=== PATIENT | male | born 1995 | race African-American/Black ===

== ENCOUNTER 2017-11-19 14:49 | Emergency (ER) | payer SELFPAY ==
[~2017-11-19] VITALS: Ht 185.4 cm; Wt 77.1 kg
[~2017-11-19 14:49] MED LIST: AMIT25TA9 PO; AMOX500C2 PO; IBP800T PO; LISD50CA2 PO
--- OUTSIDE RECORDS SUMMARY | 2017-11-19 14:54 | XMS REPORT ---
Author Author JAYESH EBONY Organization [facility] Address [address] [place] [address] Care Team Providers Care Stacking Machine Operator Name Role Phone REESEYAN EBONY Unavailable PROBLEMS Type Condition ICD9-CM Code [id number] Code Onset Dates Condition Status SNOMED Code Problem Oppositional defiant disorder F91.3 Active 28327879 Problem Mood disorder F39 Active 70365709 Problem Primary insomnia F51.01 Active 5509859 Problem Cannabis use, uncomplicated F12.90 Active 311215013 Problem Generalized anxiety disorder F41.1 Active 82132259 Problem Moderate episode of recurrent major depressive disorder F33.1 Active 752318824 Problem Insomnia, unspecified type G47.00 Active 532834137 Problem Family history of diabetes mellitus Z83.3 Active 829715575 Problem Encounter to establish care Z76.89 Active 525162854 Problem Attention deficit hyperactivity disorder (ADHD), unspecified ADHD type F90.9 Active 193196586 ALLERGIES No Information ENCOUNTERS Encounter Location Date Diagnosis [facility] [id number] [place] [address]3765- [address]563 Jan, [facility] [id number] [place] [address] 64171- 7404 Jan, [facility] [id number] [place] [address] 10763- 9342 Jan, Acute upper respiratory infection, unspecified J06.9 [facility] [id number] [place] [address]1914 -7258 Jan, Acute nasopharyngitis (common cold) J00 [facility] [id number] [place] [address]39 -4799 Dec, [facility] [address] [address] Dec, Attention deficit hyperactivity disorder (ADHD), unspecified ADHD type F90.9 ; Moderate episode of recurrent major depressive disorder F33.1 and Generalized anxiety disorder F41.1 [facility] [address] [address] Dec, Low back pain M54.5 [facility] [id number] [place] [address] 61018- 6185 Dec, [facility] [id number] [place] [address] 31311- 3418 Dec, [facility] [id number] [place] [address] 94545- 7564 Dec, [facility] [id number] [place] [address] 99109- 4934 Dec, Moderate episode of recurrent major depressive disorder F33.1 and Generalized anxiety disorder F41.1 [facility] [id number] [place] [address] 49474- 9683 Nov, [facility] [id number] [place] [address] 52714- 5420 Nov, [facility] [id number] [place] [address] 43635- 8819 Nov, Attention deficit hyperactivity disorder (ADHD), unspecified ADHD type F90.9 ; Insomnia, unspecified type G47.00 and Low back pain M54.5 [facility] [address] [address] October, Insomnia, unspecified type G47.00 and Attention deficit hyperactivity disorder (ADHD), unspecified ADHD type F90.9 [facility] [address] [address] October, [facility] [address] [address] October, [facility] [id number] [place] [address] 35331- 9367 October, [facility] [id number] [address] Sep, Acute nasopharyngitis J00 [facility] [id number] [address] Aug, [facility] [address] [address] 99[address] Jul, Attention deficit hyperactivity disorder (ADHD), unspecified ADHD type F90.9 [facility] [address] [address] Jun, Attention deficit hyperactivity disorder (ADHD), unspecified ADHD type F90.9 ; Encounter for immunization Z23 and Upper respiratory infection, acute J06.9 [facility] [address] [address] 5[address] Jun, Attention deficit hyperactivity disorder (ADHD), unspecified ADHD type F90.9 [facility] [address] [address] 4[address] Jun, [facility] [address] [address] 3014 Jun, Attention deficit hyperactivity disorder (ADHD), unspecified ADHD type F90.9 [facility] [id number] [address] 98[address] May, Attention deficit hyperactivity disorder (ADHD), unspecified ADHD type F90.9 [facility] [id number] [address] Apr, [facility] [id number] [address] 6[address] Apr, Attention deficit hyperactivity disorder (ADHD), unspecified ADHD type F90.9 [facility] [id number] [address] 3514 Mar, [facility] [id number] [address] 06 Mar, 2016 Attention deficit hyperactivity disorder (ADHD), unspecified ADHD type F90.9 [facility] [id number] [address] 08 Feb, 2016 Attention deficit hyperactivity disorder (ADHD), unspecified ADHD type F90.9 [facility] [id number] [place] [address] 50421- 4385 Jan, Attention deficit hyperactivity disorder (ADHD), unspecified ADHD type F90.9 [facility] [id number] [place] [address] 66519- 8520 Dec, Attention deficit hyperactivity disorder (ADHD), unspecified ADHD type F90.9 [facility] [id number] [place] [address] 30745- 9221 24 Nov, 2015 [facility] [id number] [place] [address] 94818- 4650 16 Nov, 2015 Encounter to establish care Z76.89 ; Attention deficit hyperactivity disorder (ADHD), unspecified ADHD type F90.9 ; Insomnia, unspecified type G47.00 and Family history of diabetes mellitus Z83.3 [facility] [address] [address] 7065 13 Nov, 2015 [facility] [address] [address]- 3470 14 Sep, 2014 [facility] [address] [address] 8625 Sep, [facility] [address] [address]- 1374 Jul, [facility] [id number] [address]- 6160 Jul, [facility] [id number] [id number] May, [facility] [id number] [place] [address] 74706- 2546 May, [facility] [place] [facility] [address] [id number] [place] [address]- 3545 May, [facility] [place] [facility] [address] [id number] [place] [address]- 8744 May, [facility] [place] [facility] [address] [id number] [place] [address]- 3066 May, [facility] [place] [facility] [address] [id number] [place] [address]- 5449 May, [facility] [place] [facility] [address] [id number] [place] [address]- 8992 May, [facility] [place] [facility] [address] [id number] [place] [address]- 2320 May, [facility] [place] [facility] [address] [id number] [place] [address]- 3109 Apr, [facility] [place] [facility] [address] [id number] [place] [address]- 7525 Apr, [facility] [place] [facility] [address] [id number] [place] [address]- 1881 Feb, [facility] [place] [facility] [address] [id number] [place] [address]- 4407 Feb, [facility] [place] [facility] [address] [id number] [place] [address]- 5950 October, [facility] [place] [facility] [address] [id number] [place] [address]- 5346 October, [facility] [place] [facility] [address] [id number] [place] [address]- 6057 Sep, [facility] [place] [facility] [address] [id number] [place] [address]- 5250 Sep, [facility] [place] [facility] [address] [id number] [place] [address]- 7653 May, [facility] [place] [facility] [address] [id number] [place] [address]- 2546 May, [facility] [address] [id number] [place] [address]- 8927 Jan, [facility] [address] [id number] [place] [address]- 2546 October, [facility] [address] [id number] [place] [address]- 3976 Sep, [facility] [address] [id number] [place] [address]- 2546 Sep, [facility] [address] [id number] [place] [address]- 0016 Sep, [facility] [address] [id number] [place] [address]- 5516 Aug, [facility] [address] [id number] [place] [address]- 1506 Aug, [facility] [address] [id number] [place] [address]- 0337 Aug, [facility] [address] [id number] [place] [address]- 3346 Aug, [facility] [address] [id number] [place] [address]- 6754 Jun, [facility] [address] [id number] [place] [address]- 2546 Mar, [facility] [address] [id number] [place] [address]- 2546 Mar, [facility] [address] [id number] [place] [address]- 5006 Aug, [facility] [address] [id number] [place] [address]- 2546 Jun, [facility] [address] [id number] [place] [address]- 2546 May, [facility] [address] [facility] [id number] [address]- 9143 Apr, [facility] [address] [facility] [id number] [address]- 8046 Apr, [facility] [address] [facility] [id number] [address]- 2536 Apr, [facility] [address] [facility] [id number] [address]- 5783 Aug, [facility] [address] [facility] [id number] [address] May, [facility] [address] [facility] [id number] [address]- 5596 May, [facility] [address] [address]- 7326 Apr, [facility] [address] [address]- 5640 Apr, [facility] [id number] [address]- 0440 Apr, [facility] [id number] [address]- 8441 Apr, [facility] [id number] [address]- 0649 Mar, [facility] [id number] [address]- 7318 Mar, IMMUNIZATIONS No Known Immunizations SOCIAL HISTORY Never Assessed REASON FOR VISIT Medication question PLAN OF CARE VITAL SIGNS MEDICATIONS Unknown Medications RESULTS No Results PROCEDURES No Known procedures INSTRUCTIONS MEDICATIONS ADMINISTERED No Known Medications MEDICAL (GENERAL) HISTORY Type Description Date Medical History attention deficit hyperactivity disorder Medical History attention deficit disorder Medical History insomnia
--- OUTSIDE RECORDS SUMMARY | 2017-11-19 14:55 | XMS REPORT ---
Author Author BRIANNE SHAH [facility] Address [address] [place] [address] Care Team Providers Care Superintendent [employer] Name Role Phone BRIANNE SHAH Unavailable PROBLEMS Type Condition ICD9-CM Code [id number] Code Onset Dates Condition Status SNOMED Code Problem Unspecified constipation 564.00 Active 37975655 Problem Unspecified episodic mood disorder 296.90 Active 248063171 Problem Acute suppurative otitis media without spontaneous rupture of eardrum 382.00 Active 77972416 Problem Encounter to establish care Z76.89 Active 706762819 Problem Attention deficit hyperactivity disorder (ADHD), unspecified ADHD type F90.9 Active 518630484 Problem Oppositional defiant disorder 313.81 Active 69696380 Problem Nondependent cannabis abuse, 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 Active 543615377 Problem Insomnia, unspecified type G47.00 Active 115985528 Problem Family history of diabetes mellitus Z83.3 Active 535403065 Problem Palpitations 785.1 Active 55013303 Problem Influenza with other respiratory manifestations 487.1 Active 4967434 Problem Routine or ritual circumcision V50.2 Active 207638058 Problem GARDASIL (HPV) DX V04.89 Active Problem MENINGOCOCCAL DX V03.89 Active Problem Insomnia, unspecified 780.52 Active 087967473 Problem Routine infant or child health check V20.2 Active 824255238 Problem Headache 784.0 Active 52913432 ALLERGIES Unknown Allergies SOCIAL HISTORY No smoking Hx information available PLAN OF CARE VITAL SIGNS MEDICATIONS Medication Instructions Dosage Frequency Start Date End Date Duration Status Vyvanse 50 mg Orally Once a day 1 capsule in the morning 24h May, 28 days Active RESULTS No Results PROCEDURES No Known procedures IMMUNIZATIONS No Known Immunizations
--- OUTSIDE RECORDS SUMMARY | 2017-11-19 14:55 | XMS REPORT ---
Author Author BRIANNE SHAH [facility] Address [address] [place] [address] Care Team Providers Care Arcade Games Mechanic Name Role Phone BRIANNE SHAH Unavailable PROBLEMS Type Condition ICD9-CM Code [id number] Code Onset Dates Condition Status SNOMED Code Problem Oppositional defiant disorder F91.3 Active 85389129 Problem Mood disorder F39 Active 36900862 Problem Primary insomnia F51.01 Active 1316586 Problem Cannabis use, uncomplicated F12.90 Active 667943502 Problem Generalized anxiety disorder F41.1 Active 66313134 Problem Moderate episode of recurrent major depressive disorder F33.1 Active 969628105 Problem Insomnia, unspecified type G47.00 Active 069139568 Problem Family history of diabetes mellitus Z83.3 Active 666225299 Problem Encounter to establish care Z76.89 Active 297217467 Problem Attention deficit hyperactivity disorder (ADHD), unspecified ADHD type F90.9 Active 892549035 ALLERGIES No Information SOCIAL HISTORY Never Assessed PLAN OF CARE VITAL SIGNS MEDICATIONS Medication Instructions Dosage Frequency Start Date End Date Duration Status Vyvanse 50 mg Orally Once a day 1 capsule in the morning 24h Jul, 28 days Active RESULTS No Results PROCEDURES No Known procedures IMMUNIZATIONS No Known Immunizations MEDICAL (GENERAL) HISTORY Type Description Date Medical History attention deficit hyperactivity disorder Medical History attention deficit disorder Medical History insomnia
--- OUTSIDE RECORDS SUMMARY | 2017-11-19 14:55 | XMS REPORT ---
Author Author BRIANNE SHAH [facility] eClinical[employer] Address Unknown Phone Unavailable Care Team Providers Care World Geography Teacher Name Role Phone BRIANNE SHAH CP Unavailable Allergies No Known Allergies Problems Problem Type Condition Code Onset Dates Condition Status Problem Headache 784.0 Active Problem Acute suppurative otitis media without spontaneous rupture of eardrum 382.00 Active Problem Unspecified constipation 564.00 Active Problem Attention deficit hyperactivity disorder (ADHD), unspecified ADHD type F90.9 Active Problem Insomnia, unspecified type G47.00 Active Problem Encounter to establish care Z76.89 Active Problem Nondependent cannabis abuse, 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 Active Problem Unspecified episodic mood disorder 296.90 Active Problem Family history of diabetes mellitus Z83.3 Active Problem Oppositional defiant disorder 313.81 Active Problem Palpitations 785.1 Active Problem Routine infant or child health check V20.2 Active Problem Routine or ritual circumcision V50.2 Active Problem Influenza with other respiratory manifestations 487.1 Active Problem GARDASIL (HPV) DX V04.89 Active Problem MENINGOCOCCAL DX V03.89 Active Problem Insomnia, unspecified 780.52 Active Medications No Known Medications Results No Known Results Summary Purpose eClinicalWorks Submission
--- OUTSIDE RECORDS SUMMARY | 2017-11-19 14:55 | XMS REPORT ---
Author Author BILLY Clayton [facility] Address [address] [place] [address] Care Team Providers Care Drugless Doctor Name Role Phone BILLY Clayton Unavailable PROBLEMS Type Condition ICD9-CM Code UTE54-QN Code Onset Dates Condition Status SNOMED Code Problem Oppositional defiant disorder F91.3 Active 76024363 Problem Mood disorder F39 Active 08735416 Problem Primary insomnia F51.01 Active 4921676 Problem Cannabis use, uncomplicated F12.90 Active 812526616 Problem Generalized anxiety disorder F41.1 Active 24689931 Problem Moderate episode of recurrent major depressive disorder F33.1 Active 737140332 Problem Insomnia, unspecified type G47.00 Active 184676257 Problem Family history of diabetes mellitus Z83.3 Active 851626129 Problem Encounter to establish care Z76.89 Active 773850486 Problem Attention deficit hyperactivity disorder (ADHD), unspecified ADHD type F90.9 Active 749667426 ALLERGIES Substance Reaction Event Type Date Status Evie Mc Unknown Drug Allergy Jan, Active ENCOUNTERS Encounter Location Date Diagnosis [facility] [id number] [place] [address]- 6559 Jan, [facility] [id number] [place] [address] 92192- 6543 Jan, [facility] [id number] [place] [address] 49165- 5844 Jan, Acute upper respiratory infection, unspecified J06.9 [facility] [id number] [place] [address] -5957 Jan, Acute nasopharyngitis (common cold) J00 [facility] [id number] [place] [address] 16377 -5583 Dec, [facility] [address] [facility] [id number] [address] Dec, Attention deficit hyperactivity disorder (ADHD), unspecified ADHD type F90.9 ; Moderate episode of recurrent major depressive disorder F33.1 and Generalized anxiety disorder F41.1 [facility] [address] [facility] [id number] [place] [address] Dec, Low back pain M54.5 [facility] [address] [facility] [id number] [place] [address] Dec, [facility] [address] [facility] [id number] [place] [address] 9887 Dec, [facility] [address] [facility] [id number] [place] [address] 3[address] Dec, [facility] [id number] [place] [address] Dec, Moderate episode of recurrent major depressive disorder F33.1 and Generalized anxiety disorder F41.1 [facility] [address] [facility] [id number] [place] [address]235 Nov, [facility] [address] [facility] [id number] [place] [address]36 Nov, [facility] [address] [facility] [id number] [place] [address]678 Nov, Attention deficit hyperactivity disorder (ADHD), unspecified ADHD type F90.9 ; Insomnia, unspecified type G47.00 and Low back pain M54.5 [facility] [address] [facility] [id number] [place] [address] October, Insomnia, unspecified type G47.00 and Attention deficit hyperactivity disorder (ADHD), unspecified ADHD type F90.9 [facility] [address] [facility] [id number] [place] [address] 0886 October, [facility] [address] [facility] [id number] [place] [address] 9060 October, [facility] [address] [address] October, [facility] [address] [address] Sep, Acute nasopharyngitis J00 [facility] [address] [address] Aug, [facility] [id number] [place] [address]- 2339 Jul, Attention deficit hyperactivity disorder (ADHD), unspecified ADHD type F90.9 [facility] [id number] [place] [address]65- 6360 Jun, Attention deficit hyperactivity disorder (ADHD), unspecified ADHD type F90.9 ; Encounter for immunization Z23 and Upper respiratory infection, acute J06.9 [facility] [address] [address] Jun, Attention deficit hyperactivity disorder (ADHD), unspecified ADHD type F90.9 [facility] [address] [address] Jun, [facility] [address] [address] 67[address] Jun, Attention deficit hyperactivity disorder (ADHD), unspecified ADHD type F90.9 [facility] [address] [address] May, Attention deficit hyperactivity disorder (ADHD), unspecified ADHD type F90.9 [facility] [address] [address] Apr, [facility] [address] [address] 7645 Apr, Attention deficit hyperactivity disorder (ADHD), unspecified ADHD type F90.9 [facility] [address] [address] Mar, [facility] [address] [address] 164[address] Mar, Attention deficit hyperactivity disorder (ADHD), unspecified ADHD type F90.9 [facility] [address] [address] 08 Feb, 2016 Attention deficit hyperactivity disorder (ADHD), unspecified ADHD type F90.9 [facility] [id number] [place] [address] 6[address]379- 1769 Jan, Attention deficit hyperactivity disorder (ADHD), unspecified ADHD type F90.9 [facility] [id number] [place] [address] 355629- 5944 Dec, Attention deficit hyperactivity disorder (ADHD), unspecified ADHD type F90.9 [facility] [address] [address] 24 Nov, 2015 [facility] [id number] [place] [address] 94877- 2598 16 Nov, 2015 Encounter to establish care Z76.89 ; Attention deficit hyperactivity disorder (ADHD), unspecified ADHD type F90.9 ; Insomnia, unspecified type G47.00 and Family history of diabetes mellitus Z83.3 [facility] [address] [address]- 67[address] 13 Nov, 2015 [facility] [address] [address] 1403 Sep, [facility] [address] [address]- 97[address] Sep, [facility] [id number] [place] [address] 35003- 2608 Jul, [facility] [address] [address] 8[address] Jul, [facility] [address] [id number] May, [facility] [address] [id number] [place] [address] May, [facility] [place] [facility] [address] [id number] [place] [address] May, [facility] [place] [facility] [address] [id number] [place] [address]- 4071 May, [facility] [place] [facility] [address] [id number] [place] [address]- 6756 May, [facility] [place] [facility] [address] [id number] [place] [address]- 2270 May, [facility] [place] [facility] [address] [id number] [place] [address] May, [facility] [place] [facility] [address] [id number] [place] [address]- 8952 May, [facility] [place] [facility] [address] [id number] [place] [address]- 0608 Apr, [facility] [place] [facility] [address] [id number] [place] [address]- 3814 Apr, [facility] [place] [facility] [address] [id number] [place] [address]- 9145 Feb, [facility] [place] [facility] [address] [id number] [place] [address]- 2660 Feb, [facility] [place] [facility] [address] [id number] [address] 4[address] October, [facility] [place] [facility] [address] [id number] [place] [address]- 0442 October, [facility] [place] [facility] [address] [id number] [place] [address]- 2172 Sep, [facility] [place] [facility] [address] [id number] [place] [address]- 3516 Sep, [facility] [place] [facility] [address] [id number] [address]- 2836 May, [facility] [address] [id number] [place] [address]- 7585 May, [facility] [place] [facility] [address] [id number] [place] [address]- 8136 Jan, [facility] [place] [facility] [address] [id number] [place] [address]- 3056 October, [facility] [place] [facility] [address] [id number] [place] [address]- 9403 Sep, [facility] [place] [facility] [address] [id number] [place] [address]- 5064 Sep, [facility] [place] [facility] [address] [id number] [place] [address]- 6813 Sep, [facility] [address] [id number] [place] [address]- 2118 Aug, [facility] [place] [facility] [address] [id number] [place] [address]- 0346 Aug, [facility] [address] [id number] [place] [address]- 6677 Aug, [facility] [place] [facility] [address] [id number] [place] [address]- 1608 Aug, [facility] [address] [id number] [place] [address]- 2063 Jun, [facility] [place] [facility] [address] [id number] [place] [address]- 1907 Mar, [facility] [place] [facility] [address] [id number] [place] [address]- 6442 Mar, [facility] [place] [facility] [address] [id number] [place] [address]- 1489 Aug, [facility] [place] [facility] [address] [id number] [place] [address]- 8663 Jun, [facility] [place] [facility] [address] [address] 2546 May, [facility] [address] [address]- 8[address] Apr, [facility] [address] [address]- 2546 Apr, [facility] [address] [address]- 2542 Apr, [facility] [address] [address]- 2912 Aug, [facility] [id number] [place] [address] 13225- 9742 May, [facility] [address] [address]- 4491 May, [facility] [id number] [place] [address] 46767- 0190 Apr, [facility] [address] [address]- 8783 Apr, [facility] [address] [address]- 6909 Apr, [facility] [address] [address]- 8132 Apr, [facility] [address] [address]- 1522 Mar, [facility] [id number] [address]- [address]487 Mar, IMMUNIZATIONS No Known Immunizations SOCIAL HISTORY Never Assessed REASON FOR VISIT chest congestion, productive cough that has red tinged sputum, stuffy nose. been sick for 2 days. [email or web address] PLAN OF CARE Activity Details Follow Up prn Reason: VITAL SIGNS Height 72 in 2017-01-14 Weight 162.4 lbs 2017-01-14 Temperature 97.2 degrees Fahrenheit 2017-01-14 Heart Rate 70 bpm 2017-01-14 Respiratory Rate 18 2017-01-14 BMI 22.02 kg/m2 2017-01-14 Blood pressure systolic 128 mmHg 2017-01-14 Blood pressure diastolic 74 mmHg 2017-01-14 MEDICATIONS Medication Instructions Dosage Frequency Start Date End Date Duration Status Amitriptyline HCl 25 MG Orally Once a day 1 tablet at bedtime 24h 30 days Active Celexa 10 MG Orally Once a day at night 0.5 tablets Dec, 30 days Active RESULTS No Results PROCEDURES No Known procedures INSTRUCTIONS MEDICATIONS ADMINISTERED No Known Medications MEDICAL (GENERAL) HISTORY Type Description Date Medical History attention deficit hyperactivity disorder Medical History attention deficit disorder Medical History insomnia
--- OUTSIDE RECORDS SUMMARY | 2017-11-19 14:55 | XMS REPORT ---
Author Author BRIANNE SHAH Organization [employer] Address Unknown Phone Unavailable Care Team Providers Care Client Experience Specialist Name Role Phone BRIANNE SHAH CP Unavailable [...] Active Problem Oppositional defiant disorder 313.81 Active Assessment Attention deficit hyperactivity disorder (ADHD), unspecified ADHD type F90.9 Active Problem Palpitations 785.1 Active Problem Routine infant or child health check V20.2 Active Problem Routine or ritual circumcision V50.2 Active Problem Influenza with other respiratory manifestations 487.1 Active Problem GARDASIL (HPV) DX V04.89 Active Problem MENINGOCOCCAL DX V03.89 Active Problem Insomnia, unspecified 780.52 Active Medications Medication Code System Code Instructions Start Date End Date Status Dosage Vyvanse [facility] [address]-90 50 mg Orally Once a day 1 capsule in the morning Results No Known Results Summary Purpose [employer] Submission
--- OUTSIDE RECORDS SUMMARY | 2017-11-19 14:55 | XMS REPORT ---
Author Author VEENA COLON Organization [facility] Address [address] [place] [address] Care Team Providers Care Hydrogen Treater Name Role Phone VEENA COLON Unavailable PROBLEMS Type Condition ICD9-CM Code QAV79-UT Code Onset Dates Condition Status SNOMED Code Problem Oppositional defiant disorder F91.3 Active 78390317 Problem Mood disorder F39 Active 50689293 Problem Primary insomnia F51.01 Active 9897948 Problem Cannabis use, uncomplicated F12.90 Active 698835517 Problem Generalized anxiety disorder F41.1 Active 26224340 Problem Moderate episode of recurrent major depressive disorder F33.1 Active 784734698 Problem Insomnia, unspecified type G47.00 Active 522639857 Problem Family history of diabetes mellitus Z83.3 Active 417070180 Problem Encounter to establish care Z76.89 Active 806177133 Problem Attention deficit hyperactivity disorder (ADHD), unspecified ADHD type F90.9 Active 599141182 ALLERGIES No Information ENCOUNTERS Encounter Location Date Diagnosis [facility] [id number] [place] [address]- 1019 Jan, [facility] [id number] [place] [address] 44408- 5404 Jan, [facility] [id number] [place] [address] 61045- 7542 Jan, Acute upper respiratory infection, unspecified J06.9 [facility] [id number] [place] [address] Jan, Acute nasopharyngitis (common cold) J00 [facility] [id number] [place] [address] Dec, [facility] [address] [address] Dec, Attention deficit hyperactivity disorder (ADHD), unspecified ADHD type F90.9 ; Moderate episode of recurrent major depressive disorder F33.1 and Generalized anxiety disorder F41.1 [facility] [address] [address] Dec, Low back pain M54.5 [facility] [address] [address] Dec, [facility] [id number] [place] [address] 13428- 4039 Dec, [facility] [id number] [place] [address] 73471- 8533 Dec, [facility] [id number] [place] [address] 84443- 7256 Dec, Moderate episode of recurrent major depressive disorder F33.1 and Generalized anxiety disorder F41.1 [facility] [id number] [place] [address] 08068- 2848 Nov, [facility] [id number] [place] [address] 08548- 0392 Nov, [facility] [id number] [place] [address] 94166- 0659 Nov, Attention deficit hyperactivity disorder (ADHD), unspecified ADHD type F90.9 ; Insomnia, unspecified type G47.00 and Low back pain M54.5 [facility] [address] [address] October, Insomnia, unspecified type G47.00 and Attention deficit hyperactivity disorder (ADHD), unspecified ADHD type F90.9 [facility] [address], [place] [address] October, [facility] [address] [address] October, [facility] [id number] [place] [address] 89573- 0799 October, [facility] [id number] [address] Sep, Acute nasopharyngitis J00 [facility] [address] [facility] [id number] [address] Aug, [facility] [address] [address] Jul, Attention deficit hyperactivity disorder (ADHD), unspecified ADHD type F90.9 [facility] [id number] [address] Jun, Attention deficit hyperactivity disorder (ADHD), unspecified ADHD type F90.9 ; Encounter for immunization Z23 and Upper respiratory infection, acute J06.9 [facility] [id number] [address] Jun, Attention deficit hyperactivity disorder (ADHD), unspecified ADHD type F90.9 [facility] [id number] [address] Jun, [facility] [address] [address] 8[address] Jun, Attention deficit hyperactivity disorder (ADHD), unspecified ADHD type F90.9 [facility] [id number] [address] May, Attention deficit hyperactivity disorder (ADHD), unspecified ADHD type F90.9 [facility] [id number] [address] 7[address] Apr, [facility] [id number] [address] 65[address] Apr, Attention deficit hyperactivity disorder (ADHD), unspecified ADHD type F90.9 [facility] [id number] [address] Mar, [facility] [id number] [address] 24[address] Mar, Attention deficit hyperactivity disorder (ADHD), unspecified ADHD type F90.9 [facility] [id number] [place] [address] 40855- 4368 08 Feb, 2016 Attention deficit hyperactivity disorder (ADHD), unspecified ADHD type F90.9 [facility] [id number] [address] Jan, Attention deficit hyperactivity disorder (ADHD), unspecified ADHD type F90.9 [facility] [id number] [place] [address] 00287- 4789 Dec, Attention deficit hyperactivity disorder (ADHD), unspecified ADHD type F90.9 [facility] [id number] [address] 24 Nov, 2015 [facility] [id number] [place] [address] 59846- 7684 16 Nov, 2015 Encounter to establish care Z76.89 ; Attention deficit hyperactivity disorder (ADHD), unspecified ADHD type F90.9 ; Insomnia, unspecified type G47.00 and Family history of diabetes mellitus Z83.3 [facility] [id number] [place] [address]40- 8936 13 Nov, 2015 [facility] [address], [place] [address] 42[address] Sep, [facility] [address], [place] [address]- [address] Sep, [facility] [id number] [place] [address] 43844- 8039 Jul, [facility] [id number] [place] [address] 72721- 4774 Jul, [facility] [address] [id number] May, [facility] [id number] [place] [address] 31464- 3239 May, [facility] [place] [facility] [address] [id number] [place] [address]- 4694 May, [facility] [place] [facility] [address] [id number] [place] [address]- 4486 May, [facility] [place] [facility] [address] [id number] [place] [address]- 5161 May, [facility] [place] [facility] [address] [id number] [place] [address]- 6528 May, [facility] [place] [facility] [address] [id number] [place] [address]- 1395 May, [facility] [place] [facility] [address] [id number] [place] [address]- 0975 May, [facility] [place] [facility] [address] [id number] [place] [address]- 7325 Apr, [facility] [place] [facility] [address] [id number] [place] [address]- 6962 Apr, [facility] [place] [facility] [address] [id number] [place] [address]- 6631 Feb, [facility] [place] [facility] [address] [id number] [place] [address]- 2235 Feb, [facility] [place] [facility] [address] [id number] [place] [address]- 1250 October, [facility] [place] [facility] [address] [id number], [place] [address]- 3747 October, [facility] [place] [facility] [address] [id number] [place] [address]- 1886 Sep, [facility] [place] [facility] [address] [id number] [place] [address]- 7591 Sep, [facility] [place] [facility] [address] [id number] [place] [address]- 4896 May, [facility] [place] [facility] [address] [id number] [place] [address]- 1096 May, [facility] [address] [id number] [place] [address]- 5506 Jan, [facility] [address] [id number] [place] [address] 2546 October, [facility] [address] [id number] [place] [address]- 4989 Sep, [facility] [address] [id number] [place] [address]- 7496 Sep, [facility] [address] [id number] [place] [address]- 9073 Sep, [facility] [address] [id number] [place] [address]- 9084 Aug, [facility] [address] [id number] [place] [address]- 4805 Aug, [facility] [address] [id number] [place] [address]- 9211 Aug, [facility] [address] [id number] [place] [address]- 0916 Aug, [facility] [address] [id number] [place] [address]- 1629 Jun, [facility] [address] [id number] [place] [address]- 7196 Mar, [facility] [address] [id number] [place] [address]- 9752 Mar, [facility] [address] [id number] [place] [address]- 8870 Aug, [facility] [address] [id number] [place] [address]- 2546 Jun, [facility] [address] [id number] [place] [address]- 2936 May, [facility] [address] [facility] [id number] [address]- [address] 29 Apr, 2011 [facility] [address] [facility] [id number], [place] [address] 2546 Apr, [facility] [address] [facility] [id number], [place] [address] 2546 Apr, [facility] [address] [facility] [id number], [place] [address] 2540 Aug, [facility] [address] [facility] [id number], [place] [address]- 4625 May, [facility] [address] [facility] [id number], [place] [address]- 3446 May, [facility] [address], [place] [address]- 7023 Apr, [facility] [id number], [place] [address]- 7449 Apr, [facility] [id number], [place] [address]- 4329 Apr, [facility] [id number], [place] [address]- 5870 Apr, [facility] [id number], [place] [address]- 1849 Mar, [facility] [id number], [place] [address]- 4664 Mar, IMMUNIZATIONS No Known Immunizations SOCIAL HISTORY Never Assessed REASON FOR VISIT Other PLAN OF CARE VITAL SIGNS MEDICATIONS Unknown Medications RESULTS No Results PROCEDURES No Known procedures INSTRUCTIONS MEDICATIONS ADMINISTERED No Known Medications MEDICAL (GENERAL) HISTORY Type Description Date Medical History attention deficit hyperactivity disorder Medical History attention deficit disorder Medical History insomnia
--- OUTSIDE RECORDS SUMMARY | 2017-11-19 14:55 | XMS REPORT ---
Author Author PHILLIP LOCO Organization [facility] Address [address] [place] [address] Care Team Providers Care Lifter Name Role Phone PHILLIP LOCO Unavailable PROBLEMS Type Condition ICD9-CM Code WMP61-BP Code Onset Dates Condition Status SNOMED Code Problem Oppositional defiant disorder F91.3 Active 96773687 Problem Mood disorder F39 Active 08853750 Problem Primary insomnia F51.01 Active 1993183 Problem Cannabis use, uncomplicated F12.90 Active 992719668 Problem Generalized anxiety disorder F41.1 Active 50939560 Problem Moderate episode of recurrent major depressive disorder F33.1 Active 316256626 Problem Insomnia, unspecified type G47.00 Active 595037094 Problem Family history of diabetes mellitus Z83.3 Active 752798816 Problem Encounter to establish care Z76.89 Active 944720126 Problem Attention deficit hyperactivity disorder (ADHD), unspecified ADHD type F90.9 Active 571998016 ALLERGIES Unknown Allergies SOCIAL HISTORY No smoking Hx information available PLAN OF CARE VITAL SIGNS MEDICATIONS Unknown Medications RESULTS No Results PROCEDURES No Known procedures IMMUNIZATIONS No Known Immunizations
--- OUTSIDE RECORDS SUMMARY | 2017-11-19 14:56 | XMS REPORT ---
Author Author BRIANNE SHAH Organization [employer] Address Unknown Phone Unavailable Care Team Providers Care Certified Alcohol And Drug Counselor Name Role Phone BRIANNE SHAH CP Unavailable [...] Start Date End Date Status Dosage Vyvanse [facility] [address]-22 50 mg Orally Once a day 1 capsule in the morning Results No Known Results Summary Purpose [employer] Submission
--- OUTSIDE RECORDS SUMMARY | 2017-11-19 14:56 | XMS REPORT ---
Author Author BRIANNE SHAH Organization [employer] Address Unknown Phone Unavailable Care Team Providers Care Commercial Loan Reviewer Name Role Phone BRIANNE SHAH CP Unavailable [...] Start Date End Date Status Dosage Vyvanse [facility] [address]-12 50 mg Orally Once a day 1 capsule in the morning Results No Known Results Summary Purpose [employer] Submission
--- OUTSIDE RECORDS SUMMARY | 2017-11-19 14:56 | XMS REPORT ---
Author Author BRIANNE SHAH Organization [employer] Address Unknown Phone Unavailable Care Team Providers Care Licensed Retail Supervisor Name Role Phone BRIANNE SHAH CP Unavailable [...] Start Date End Date Status Dosage Vyvanse [facility] [address]-63 50 mg Orally Once a day 1 capsule in the morning Amitriptyline HCl [facility] [address]-51 25 MG Orally Once a day at hs 1 tablet Results No Known Results Summary Purpose [employer] Submission
--- OUTSIDE RECORDS SUMMARY | 2017-11-19 14:56 | XMS REPORT ---
Author Author BRIANNE SHAH Organization [facility] Address [address] [place] [address] Care Team Providers Care Shaft Repairer Name Role Phone BRIANNE SHAH Unavailable PROBLEMS Type Condition ICD9-CM Code JZA57-TD Code Onset Dates Condition Status SNOMED Code Problem Oppositional defiant disorder F91.3 Active 06319409 Problem Mood disorder F39 Active 48337985 Problem Primary insomnia F51.01 Active 7936786 Problem Cannabis use, uncomplicated F12.90 Active 921745156 Problem Generalized anxiety disorder F41.1 Active 55953472 Problem Moderate episode of recurrent major depressive disorder F33.1 Active 712956728 Problem Insomnia, unspecified type G47.00 Active 262573109 Problem Family history of diabetes mellitus Z83.3 Active 142297904 Problem Encounter to establish care Z76.89 Active 130631084 Problem Attention deficit hyperactivity disorder (ADHD), unspecified ADHD type F90.9 Active 027159688 ALLERGIES Substance Reaction Event Type Date Status Evie Mc Unknown Drug Allergy Nov, Active ENCOUNTERS Encounter Location Date Diagnosis [facility] [id number] [place] [address]18- 4882 Jan, [facility] [id number] [place] [address] 61411- 6355 Jan, [facility] [id number] [place] [address] 82863- 0394 Jan, Acute upper respiratory infection, unspecified J06.9 [facility] [id number] [place] [address]85 Jan, Acute nasopharyngitis (common cold) J00 [facility] [id number] [place] [address]1711 Dec, [facility] [address] [facility] [id number] [address] Dec, Attention deficit hyperactivity disorder (ADHD), unspecified ADHD type F90.9 ; Moderate episode of recurrent major depressive disorder F33.1 and Generalized anxiety disorder F41.1 [facility] [address] [facility] [id number] [place] [address] Dec, Low back pain M54.5 [facility] [address] [facility] [id number] [place] [address]206 Dec, [facility] [address] [facility] [id number] [place] [address] Dec, [facility] [address] [facility] [id number] [address] Dec, [facility] [address] [id number] [address] Dec, Moderate episode of recurrent major depressive disorder F33.1 and Generalized anxiety disorder F41.1 [facility] [address] [facility] [id number] [place] [address] Nov, [facility] [address] [id number] [address] Nov, [facility] [address] [id number] [address] Nov, Attention deficit hyperactivity disorder (ADHD), unspecified ADHD type F90.9 ; Insomnia, unspecified type G47.00 and Low back pain M54.5 [facility] [address] [facility] [id number] [place] [address] October, Insomnia, unspecified type G47.00 and Attention deficit hyperactivity disorder (ADHD), unspecified ADHD type F90.9 [facility] [address] [facility] [id number] [place] [address] October, [facility] [address] [id number] [address] October, [facility] [address] [address] October, [facility] [address] [address] Sep, Acute nasopharyngitis J00 [facility] [address] [address] Aug, [facility] [address] [id number] [address] Jul, Attention deficit hyperactivity disorder (ADHD), unspecified ADHD type F90.9 [facility] [address] [address] Jun, Attention deficit hyperactivity disorder (ADHD), unspecified ADHD type F90.9 ; Encounter for immunization Z23 and Upper respiratory infection, acute J06.9 [facility] [address] [address] Jun, Attention deficit hyperactivity disorder (ADHD), unspecified ADHD type F90.9 [facility] [address] [address] Jun, [facility] [address] [address] Jun, Attention deficit hyperactivity disorder (ADHD), unspecified ADHD type F90.9 [facility] [address] [address] May, Attention deficit hyperactivity disorder (ADHD), unspecified ADHD type F90.9 [facility] [address] [address] Apr, [facility] [address] [address] Apr, Attention deficit hyperactivity disorder (ADHD), unspecified ADHD type F90.9 [facility] [id number] [address] Mar, [facility] [address] [address] Mar, Attention deficit hyperactivity disorder (ADHD), unspecified ADHD type F90.9 [facility] [address] [address] 08 Feb, 2016 Attention deficit hyperactivity disorder (ADHD), unspecified ADHD type F90.9 [facility] [id number] [place] [address] 63743- 7436 Jan, Attention deficit hyperactivity disorder (ADHD), unspecified ADHD type F90.9 [facility] [id number] [place] [address] 144930- 7059 Dec, Attention deficit hyperactivity disorder (ADHD), unspecified ADHD type F90.9 [facility] [address] [address] Nov, [facility] [id number] [place] [address]- [address] 16 Nov, 2015 Encounter to establish care Z76.89 ; Attention deficit hyperactivity disorder (ADHD), unspecified ADHD type F90.9 ; Insomnia, unspecified type G47.00 and Family history of diabetes mellitus Z83.3 [facility] [address] [address] 13 Nov, 2015 [facility] [address] [address] Sep, [facility] [address] [address] Sep, [facility] [address] [address] Jul, [facility] [address] [address] Jul, [facility] [address] [id number] May, [facility] [address] [id number] [place] [address]- 7093 May, [facility] [place] [facility] [address] [id number] [place] [address] May, [facility] [place] [facility] [address] [id number] [place] [address]- 9411 May, [facility] [place] [facility] [address] [id number] [place] [address]- 4526 May, [facility] [place] [facility] [address] [id number] [place] [address]- 6948 May, [facility] [place] [facility] [address] [id number] [place] [address]- 2777 May, [facility] [place] [facility] [address] [id number] [place] [address]- 2743 May, [facility] [place] [facility] [address] [id number] [place] [address]- 7205 Apr, [facility] [place] [facility] [address] [id number] [place] [address]- 3734 Apr, [facility] [place] [facility] [address] [id number] [place] [address]- 7974 Feb, [facility] [place] [facility] [address] [id number] [place] [address]- 0224 Feb, [facility] [place] [facility] [address] [id number] [place] [address]- 8026 October, [facility] [place] [facility] [address] [id number] [place] [address]- 9659 October, [facility] [place] [facility] [address] [id number] [place] [address]- 5280 Sep, [facility] [place] [facility] [address] [id number] [place] [address]- 4701 Sep, [facility] [place] [facility] [address] [id number] [place] [address]- 4976 May, [facility] [address] [id number] [place] [address]- 1385 May, [facility] [place] [facility] [address] [id number] [place] [address]- 6696 Jan, [facility] [place] [facility] [address] [id number] [place] [address] 2546 October, [facility] [place] [facility] [address] [id number] [place] [address]- 1537 Sep, [facility] [place] [facility] [address] [id number] [place] [address]- 8418 Sep, [facility] [place] [facility] [address] [id number] [place] [address]- 1786 Sep, [facility] [place] [facility] [address] [id number] [place] [address]- 5625 Aug, [facility] [place] [facility] [address] [id number] [place] [address]- 7205 Aug, [facility] [address] [id number] [place] [address]- 5825 Aug, [facility] [place] [facility] [address] [id number] [place] [address] 2546 Aug, [facility] [place] [facility] [address] [id number] [address]- 7[address] Jun, [facility] [place] [facility] [address] [id number] [address] 2546 Mar, [facility] [place] [facility] [address] [id number] [place] [address]- 2546 Mar, [facility] [place] [facility] [address] [id number] [place] [address]- 5613 Aug, [facility] [place] [facility] [address] [id number] [place] [address]- 2546 Jun, [facility] [place] [facility] [address] [address] May, [facility] [address] [address]- [address] Apr, [facility] [address] [address]- 350[address] Apr, [facility] [address] [address] Apr, [facility] [address] [address]- 0888 Aug, [facility] [id number] [place] [address]256- 0940 May, [facility] [id number] [place] [address] 18288- 1902 May, [facility] [id number] [place] [address]99- 1842 Apr, [facility] [address] [address]- 8[address] Apr, [facility] [id number] [place] [address] 81463- 0521 Apr, [facility] [address] [address]- [address] Apr, [facility] [address] [address]- 7471 Mar, [facility] [address] [address]- 9001 Mar, IMMUNIZATIONS No Known Immunizations SOCIAL HISTORY Never Assessed REASON FOR VISIT ADHD F/U - Concerns with Vyvanse not working as well and concerns with it causing anxiety, Low back pain x 6 months increasing in severity, ABoggsLPN PLAN OF CARE Activity Details Follow Up 4 Weeks Reason:ADHD VITAL SIGNS Height 72 in 2016-11-25 Weight 163.5 lbs 2016-11-25 Temperature 98.5 degrees Fahrenheit 2016-11-25 Heart Rate 76 bpm 2016-11-25 Respiratory Rate 18 2016-11-25 BMI 22.17 kg/m2 2016-11-25 Blood pressure systolic 118 mmHg 2016-11-25 Blood pressure diastolic 62 mmHg 2016-11-25 MEDICATIONS Medication Instructions Dosage Frequency Start Date End Date Duration Status Amitriptyline HCl 25 MG Orally Once a day 1 tablet at bedtime 24h 30 days Active RESULTS No Results PROCEDURES No Known procedures INSTRUCTIONS MEDICATIONS ADMINISTERED No Known Medications MEDICAL (GENERAL) HISTORY Type Description Date Medical History attention deficit hyperactivity disorder Medical History attention deficit disorder Medical History insomnia
--- OUTSIDE RECORDS SUMMARY | 2017-11-19 14:56 | XMS REPORT ---
Author Author BRIANNE SHAH [facility] eClinicalWorks Address Unknown Phone Unavailable Care Team Providers Care Food Specialist Name Role Phone BRIANNE SHAH CP [...]
--- OUTSIDE RECORDS SUMMARY | 2017-11-19 14:56 | XMS REPORT ---
Author Author SUZI AL [facility] Address [address] [place] [address] Care Team Providers Care Industrial Robotics Mechanic Name Role Phone SUZI AL Unavailable PROBLEMS Type Condition ICD9-CM Code MST48-LH Code Onset Dates Condition Status SNOMED Code Problem Oppositional defiant disorder F91.3 Active 33646954 Problem Mood disorder F39 Active 28761789 Problem Primary insomnia F51.01 Active 6532772 Problem Cannabis use, uncomplicated F12.90 Active 804546739 Problem Generalized anxiety disorder F41.1 Active 45291057 Problem Moderate episode of recurrent major depressive disorder F33.1 Active 118640242 Problem Insomnia, unspecified type G47.00 Active 556095716 Problem Family history of diabetes mellitus Z83.3 Active 245252018 Problem Encounter to establish care Z76.89 Active 118835742 Problem Attention deficit hyperactivity disorder (ADHD), unspecified ADHD type F90.9 Active 567050613 ALLERGIES No Information ENCOUNTERS Encounter Location Date Diagnosis [facility] [id number] [place] [address] 68432- 1292 Jan, [facility] [id number] [place] [address] 96471- 4576 Jan, [facility] [id number] [place] [address] 11149- 0181 Jan, Acute upper respiratory infection, unspecified J06.9 [facility] [id number] [place] [address]97 -8541 Jan, Acute nasopharyngitis (common cold) J00 [facility] [id number] [place] [address] 99235 -[address] Dec, [facility] [id number] [place] [address] 68736- 4708 Dec, Attention deficit hyperactivity disorder (ADHD), unspecified ADHD type F90.9 ; Moderate episode of recurrent major depressive disorder F33.1 and Generalized anxiety disorder F41.1 [facility] [address] [address] Dec, Low back pain M54.5 [facility] [id number] [address] Dec, [facility] [id number] [place] [address] 06535- 8589 Dec, [facility] [id number] [place] [address] 15040- 3828 Dec, [facility] [id number] [place] [address] 06491- 7288 Dec, Moderate episode of recurrent major depressive disorder F33.1 and Generalized anxiety disorder F41.1 [facility] [id number] [place] [address] 93151- 5224 Nov, [facility] [id number] [place] [address] 19610- 1237 Nov, [facility] [id number] [place] [address] 90387- 1341 Nov, Attention deficit hyperactivity disorder (ADHD), unspecified ADHD type F90.9 ; Insomnia, unspecified type G47.00 and Low back pain M54.5 [facility] [address] [address] October, Insomnia, unspecified type G47.00 and Attention deficit hyperactivity disorder (ADHD), unspecified ADHD type F90.9 [facility] [address] [address] October, [facility] [address] [address] 1687 October, [facility] [id number] [place] [address] 49212- 5235 October, [facility] [id number] [address] 1406 Sep, Acute nasopharyngitis J00 [facility] [id number] [address] Aug, [facility] [address] [place] [address] 90[address] Jul, Attention deficit hyperactivity disorder (ADHD), unspecified ADHD type F90.9 [facility] [id number] [address] 14[address] Jun, Attention deficit hyperactivity disorder (ADHD), unspecified ADHD type F90.9 ; Encounter for immunization Z23 and Upper respiratory infection, acute J06.9 [facility] [id number] [address] 0145 Jun, Attention deficit hyperactivity disorder (ADHD), unspecified ADHD type F90.9 [facility] [id number] [address] 6758 Jun, [facility] [address] [address] 9293 Jun, Attention deficit hyperactivity disorder (ADHD), unspecified ADHD type F90.9 [facility] [id number] [address] 29[address] May, Attention deficit hyperactivity disorder (ADHD), unspecified ADHD type F90.9 [facility] [id number], [place] [address] 23[address] Apr, [facility] [id number] [address]- 3387 Apr, Attention deficit hyperactivity disorder (ADHD), unspecified ADHD type F90.9 [facility] [id number] [address] 7160 Mar, [facility] [address] [address] 50[address] Mar, Attention deficit hyperactivity disorder (ADHD), unspecified ADHD type F90.9 [facility] [address] 08 Feb, 2016 Attention deficit hyperactivity disorder (ADHD), unspecified ADHD type F90.9 [facility] [address], [place] [address]- 0468 Jan, Attention deficit hyperactivity disorder (ADHD), unspecified ADHD type F90.9 [facility] [id number] [place] [address] 75869- 2120 Dec, Attention deficit hyperactivity disorder (ADHD), unspecified ADHD type F90.9 [facility] [address] [address]- 77[address] 24 Nov, 2015 [facility] [id number] [place] [address] 97189- 8618 16 Nov, 2015 Encounter to establish care Z76.89 ; Attention deficit hyperactivity disorder (ADHD), unspecified ADHD type F90.9 ; Insomnia, unspecified type G47.00 and Family history of diabetes mellitus Z83.3 [facility] [address] [address]- 4791 13 Nov, 2015 [facility] [address] [address]- 09[address] Sep, [facility] [address], [place] [address]- 7952 Sep, [facility] [address] [address]- 3780 Jul, [facility] [address], [place] [address]- 3839 Jul, [facility] [id number] [address] May, [facility] [id number] [place] [address] 78223- 2125 May, [facility] [place] [facility] [address] [id number] [place] [address]- 6075 May, [facility] [place] [facility] [address] [id number] [place] [address]- 0086 May, [facility] [place] [facility] [address] [id number] [place] [address]- 7132 May, [facility] [place] [facility] [address] [id number] [place] [address]- 9330 May, [facility] [place] [facility] [address] [id number] [place] [address]- 4320 May, [facility] [place] [facility] [address] [id number] [place] [address]- 8275 May, [facility] [place] [facility] [address] [id number] [place] [address]- 4288 Apr, [facility] [place] [facility] [address] [id number] [place] [address]- 8761 Apr, [facility] [place] [facility] [address] [id number] [place] [address]- 8887 Feb, [facility] [place] [facility] [address] [id number] [place] [address]- 5484 Feb, [facility] [place] [facility] [address] [id number], [place] [address]- 2089 October, [facility] [place] [facility] [address] [id number], [place] [address]- 2924 October, [facility] [place] [facility] [address] [id number] [place] [address]- 0815 Sep, [facility] [place] [facility] [address] [id number] [place] [address]- 4231 Sep, [facility] [place] [facility] [address] [id number] [place] [address]- 6941 May, [facility] [place] [facility] [address] [id number] [place] [address]- 5185 May, [facility] [address] [id number] [place] [address]- 0289 Jan, [facility] [place] [facility] [address] [id number] [place] [address] 2546 October, [facility] [address] [id number] [place] [address]- 7779 Sep, [facility] [place] [facility] [address] [id number] [place] [address]- 0890 Sep, [facility] [address] [id number] [place] [address]- 9380 Sep, [facility] [address] [id number] [place] [address]- 5101 Aug, [facility] [address] [id number] [place] [address]- 9907 Aug, [facility] [address] [id number] [place] [address]- 8065 Aug, [facility] [address] [id number] [place] [address]- 1893 Aug, [facility] [address] [id number] [place] [address]- 5833 Jun, [facility] [address] [id number] [place] [address]- 9318 Mar, [facility] [address] [id number] [place] [address]- 2547 Mar, [facility] [place] [facility] [address] [id number] [place] [address]- 0831 Aug, [facility] [place] [facility] [address] [id number] [place] [address]- 2546 Jun, [facility] [address] [id number] [place] [address]- 4316 May, [facility] [address] [facility] [id number], [place] [address]- 5324 Apr, [facility] [address] [facility] [id number], [place] [address]- 8542 Apr, [facility] [address] [facility] [id number], [place] [address]- 1038 Apr, [facility] [address] [place] [address]- 1421 Aug, [facility] [address] [facility] [id number], [place] [address]- 0940 May, [facility] [address], [place] [address]- 6597 May, [facility] [address], [place] [address]- 5213 Apr, [facility] [id number] [place] [address] 36230- 6696 Apr, [facility] [address], [place] [address]- 5453 Apr, [facility] [address], [place] [address]- 1818 Apr, [facility] [address], [place] [address]- 0646 Mar, [facility] [address], [place] [address]- 7010 Mar, IMMUNIZATIONS No Known Immunizations SOCIAL HISTORY Never Assessed REASON FOR VISIT PT Evaluation PLAN OF CARE Activity Details Follow Up 2 Weeks Reason:F/U PT VITAL SIGNS MEDICATIONS Unknown Medications RESULTS No Results PROCEDURES Procedure Date Ordered Result Body Site PT EVAL LOW COMPLEX 20 MIN January 07, 2017 THERAPEUTIC EXERCISES January 07, 2017 INSTRUCTIONS MEDICATIONS ADMINISTERED No Known Medications MEDICAL (GENERAL) HISTORY Type Description Date Medical History attention deficit hyperactivity disorder Medical History attention deficit disorder Medical History insomnia
--- OUTSIDE RECORDS SUMMARY | 2017-11-19 14:56 | XMS REPORT ---
Author Author BRIANNE SHAH [facility] Address [address] [place] [address] Care Team Providers Care Curing Oven Attendant Name Role Phone BRIANNE SHAH Unavailable PROBLEMS Type Condition ICD9-CM Code [id number] Code Onset Dates Condition Status SNOMED Code Problem Oppositional defiant disorder F91.3 Active 61081191 Problem Mood disorder F39 Active 53870818 Problem Primary insomnia F51.01 Active 2650343 Problem Cannabis use, uncomplicated F12.90 Active 613001802 Problem Generalized anxiety disorder F41.1 Active 94892427 Problem Moderate episode of recurrent major depressive disorder F33.1 Active 669769537 Problem Insomnia, unspecified type G47.00 Active 054243184 Problem Family history of diabetes mellitus Z83.3 Active 484222430 Problem Encounter to establish care Z76.89 Active 693023885 Problem Attention deficit hyperactivity disorder (ADHD), unspecified ADHD type F90.9 Active 735620241 ALLERGIES Unknown Allergies SOCIAL HISTORY No smoking Hx information available PLAN OF CARE VITAL SIGNS MEDICATIONS Medication Instructions Dosage Frequency Start Date End Date Duration Status Vyvanse 50 mg Orally Once a day 1 capsule in the morning 24h Jun, 28 days Active RESULTS No Results PROCEDURES No Known procedures IMMUNIZATIONS No Known Immunizations
--- OUTSIDE RECORDS SUMMARY | 2017-11-19 14:56 | XMS REPORT ---
Author Author BRIANNE SHAH [facility] Address [address] [place] [address] Care Team Providers Care Regulatory Compliance Manager Name Role Phone BRIANNE SHAH Unavailable PROBLEMS Type Condition ICD9-CM Code [id number] Code Onset Dates Condition Status SNOMED Code Problem Oppositional defiant disorder F91.3 Active 78394296 Problem Mood disorder F39 Active 13417424 Problem Primary insomnia F51.01 Active 7521084 Problem Cannabis use, uncomplicated F12.90 Active 971033678 Problem Generalized anxiety disorder F41.1 Active 63588877 Problem Moderate episode of recurrent major depressive disorder F33.1 Active 058215447 Problem Insomnia, unspecified type G47.00 Active 259284378 Problem Family history of diabetes mellitus Z83.3 Active 880510291 Problem Encounter to establish care Z76.89 Active 113014690 Problem Attention deficit hyperactivity disorder (ADHD), unspecified ADHD type F90.9 Active 233246131 ALLERGIES No Information SOCIAL HISTORY Never Assessed PLAN OF CARE VITAL SIGNS MEDICATIONS Medication Instructions Dosage Frequency Start Date End Date Duration Status Vyvanse 50 mg Orally Once a day 1 capsule in the morning 24h October, 28 days Active Amitriptyline HCl 25 MG Orally Once a day 1 tablet at bedtime 24h 30 days Active RESULTS No Results PROCEDURES No Known procedures IMMUNIZATIONS No Known Immunizations MEDICAL (GENERAL) HISTORY Type Description Date Medical History attention deficit hyperactivity disorder Medical History attention deficit disorder Medical History insomnia
--- OUTSIDE RECORDS SUMMARY | 2017-11-19 14:56 | XMS REPORT ---
Author Author BRIANNE SHAH [facility] Address [address] [place] [address] Care Team Providers Care X Ray Developing Machine Operator Name Role Phone BRIANNE SHAH Unavailable PROBLEMS Type Condition ICD9-CM Code [id number] Code Onset Dates Condition Status SNOMED Code Problem Unspecified constipation 564.00 Active 20181313 Problem Unspecified episodic mood disorder 296.90 Active 136904318 Problem Acute suppurative otitis media without spontaneous rupture of eardrum 382.00 Active 24208562 Problem Encounter to establish care Z76.89 Active 053881431 Problem Attention deficit hyperactivity disorder (ADHD), unspecified ADHD type F90.9 Active 389984094 Problem Oppositional defiant disorder 313.81 Active 76673572 Problem Nondependent cannabis abuse, 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 Active 804801283 Problem Insomnia, unspecified type G47.00 Active 889741484 Problem Family history of diabetes mellitus Z83.3 Active 707095347 Problem Palpitations 785.1 Active 03323271 Problem Influenza with other respiratory manifestations 487.1 Active 4195109 Problem Routine or ritual circumcision V50.2 Active 895286865 Problem GARDASIL (HPV) DX V04.89 Active Problem MENINGOCOCCAL DX V03.89 Active Problem Insomnia, unspecified 780.52 Active 112549875 Problem Routine infant or child health check V20.2 Active 758546508 Problem Headache 784.0 Active 17186944 ALLERGIES Unknown Allergies SOCIAL HISTORY No smoking Hx information available PLAN OF CARE VITAL SIGNS MEDICATIONS Medication Instructions Dosage Frequency Start Date End Date Duration Status Vyvanse 50 mg Orally Once a day 1 capsule in the morning 24h 28 days Active RESULTS No Results PROCEDURES No Known procedures IMMUNIZATIONS No Known Immunizations
--- OUTSIDE RECORDS SUMMARY | 2017-11-19 14:56 | XMS REPORT ---
Author Author BRIANNE SHAH [facility] Address [address] [place] [address] Care Team Providers Care Contract Accountant Name Role Phone BRIANNE SHAH Unavailable PROBLEMS Type Condition ICD9-CM Code [id number] Code Onset Dates Condition Status SNOMED Code Problem Oppositional defiant disorder F91.3 Active 93247959 Problem Mood disorder F39 Active 49706789 Problem Primary insomnia F51.01 Active 6447356 Problem Cannabis use, uncomplicated F12.90 Active 378180064 Problem Generalized anxiety disorder F41.1 Active 72324461 Problem Moderate episode of recurrent major depressive disorder F33.1 Active 074858727 Problem Insomnia, unspecified type G47.00 Active 502487980 Problem Family history of diabetes mellitus Z83.3 Active 638278142 Problem Encounter to establish care Z76.89 Active 602721155 Problem Attention deficit hyperactivity disorder (ADHD), unspecified ADHD type F90.9 Active 563187331 ALLERGIES No Information SOCIAL HISTORY Never Assessed PLAN OF CARE VITAL SIGNS MEDICATIONS Unknown Medications RESULTS No Results PROCEDURES No Known procedures IMMUNIZATIONS No Known Immunizations MEDICAL (GENERAL) HISTORY Type Description Date Medical History attention deficit hyperactivity disorder Medical History attention deficit disorder Medical History insomnia
--- OUTSIDE RECORDS SUMMARY | 2017-11-19 14:57 | XMS REPORT ---
Author Author JAYESH EBONY Organization [facility] Address [address] [place] [address] Care Team Providers Care Sprayer Insecticide Name Role Phone REESEYAN EBONY Unavailable PROBLEMS Type Condition ICD9-CM Code [id number] Code Onset Dates Condition Status SNOMED Code Problem Oppositional defiant disorder F91.3 Active 09892572 Problem Mood disorder F39 Active 58723949 Problem Primary insomnia F51.01 Active 2986457 Problem Cannabis use, uncomplicated F12.90 Active 781578964 Problem Generalized anxiety disorder F41.1 Active 01900306 Problem Moderate episode of recurrent major depressive disorder F33.1 Active 149175757 Problem Insomnia, unspecified type G47.00 Active 560039812 Problem Family history of diabetes mellitus Z83.3 Active 295722810 Problem Encounter to establish care Z76.89 Active 650960482 Problem Attention deficit hyperactivity disorder (ADHD), unspecified ADHD type F90.9 Active 838233428 ALLERGIES Substance Reaction Event Type Date Status Evie Mc Unknown Drug Allergy Dec, Active ENCOUNTERS Encounter Location Date Diagnosis [facility] [id number] [place] [address] Jan, [facility] [id number] [place] [address]- [address] Jan, [facility] [id number] [place] [address]- 3606 Jan, Acute upper respiratory infection, unspecified J06.9 [facility] [id number] [place] [address] Jan, Acute nasopharyngitis (common cold) J00 [facility] [id number] [place] [address] Dec, [facility] [address] [facility] [id number] [place] [address] Dec, Attention deficit hyperactivity disorder (ADHD), unspecified ADHD type F90.9 ; Moderate episode of recurrent major depressive disorder F33.1 and Generalized anxiety disorder F41.1 [facility] [address] [facility] [id number] [place] [address] Dec, Low back pain M54.5 [facility] [address] [facility] [id number] [place] [address] 95[address] Dec, [facility] [address] [facility] [id number] [place] [address] Dec, [facility] [address] [facility] [id number] [place] [address]794 Dec, [facility] [address] [facility] [id number] [place] [address] Dec, Moderate episode of recurrent major depressive disorder F33.1 and Generalized anxiety disorder F41.1 [facility] [address] [facility] [id number] [place] [address] Nov, [facility] [address] [facility] [id number] [place] [address] Nov, [facility] [address] [facility] [id number] [place] [address] Nov, Attention deficit hyperactivity disorder (ADHD), unspecified ADHD type F90.9 ; Insomnia, unspecified type G47.00 and Low back pain M54.5 [facility] [address] [facility] [id number] [place] [address] October, Insomnia, unspecified type G47.00 and Attention deficit hyperactivity disorder (ADHD), unspecified ADHD type F90.9 [facility] [address] [facility] [id number] [place] [address] 27[address] October, [facility] [address] [facility] [id number] [address] October, [facility] [address] [address] October, [facility] [address] [place] [address]- 2064 Sep, Acute nasopharyngitis J00 [facility] [address] [address] Aug, [facility] [id number] [place] [address]- 4[address] Jul, Attention deficit hyperactivity disorder (ADHD), unspecified ADHD type F90.9 [facility] [id number] [place] [address]- [address]2 Jun, Encounter for immunization Z23 ; Attention deficit hyperactivity disorder (ADHD), unspecified ADHD type F90.9 and Upper respiratory infection, acute J06.9 [facility] [id number] [address] Jun, Attention deficit hyperactivity disorder (ADHD), unspecified ADHD type F90.9 [facility] [address] [address] Jun, [facility] [address] [address] Jun, Attention deficit hyperactivity disorder (ADHD), unspecified ADHD type F90.9 [facility] [address] [address] May, Attention deficit hyperactivity disorder (ADHD), unspecified ADHD type F90.9 [facility] [id number] [address] Apr, [facility] [address] [address] Apr, Attention deficit hyperactivity disorder (ADHD), unspecified ADHD type F90.9 [facility] [address] [address] Mar, [facility] [address] [address] Mar, Attention deficit hyperactivity disorder (ADHD), unspecified ADHD type F90.9 [facility] [address] [address] 08 Feb, 2016 Attention deficit hyperactivity disorder (ADHD), unspecified ADHD type F90.9 [facility] [id number] [place] [address]- 4114 Jan, Attention deficit hyperactivity disorder (ADHD), unspecified ADHD type F90.9 [facility] [address] [place] [address] 873434- 0523 Dec, Attention deficit hyperactivity disorder (ADHD), unspecified ADHD type F90.9 [facility] [address] [address] 28[address] Nov, [facility] [id number] [place] [address]10- 8351 16 Nov, 2015 Encounter to establish care Z76.89 ; Attention deficit hyperactivity disorder (ADHD), unspecified ADHD type F90.9 ; Insomnia, unspecified type G47.00 and Family history of diabetes mellitus Z83.3 [facility] [address] [address] 13 Nov, 2015 [facility] [address] [address] Sep, [facility] [address] [address] Sep, [facility] [address] [address] Jul, [facility] [address] [address] Jul, [facility] [address] [address] May, [facility] [place] [facility] [address] [id number] [place] [address]- 7633 May, [facility] [place] [facility] [address] [id number] [place] [address]- 5623 May, [facility] [place] [facility] [address] [id number] [place] [address]- 6737 May, [facility] [place] [facility] [address] [id number] [place] [address]- 6361 May, [facility] [place] [facility] [address] [id number] [place] [address]- 9822 May, [facility] [place] [facility] [address] [id number] [place] [address]- 1538 May, [facility] [place] [facility] [address] [id number] [place] [address]- 3178 May, [facility] [place] [facility] [address] [id number] [place] [address]- 9716 Apr, [facility] [place] [facility] [address] [id number] [place] [address] Apr, [facility] [place] [facility] [address] [id number] [place] [address]- 5579 Feb, [facility] [place] [facility] [address] [id number] [place] [address]- 7622 Feb, [facility] [place] [facility] [address] [id number] [place] [address]- 6989 October, [facility] [place] [facility] [address] [id number] [place] [address]- 9907 October, [facility] [place] [facility] [address] [id number] [place] [address]- 4985 Sep, [facility] [place] [facility] [address] [id number] [place] [address]- 2283 Sep, [facility] [place] [facility] [address] [id number] [place] [address]- 1045 May, [facility] [address] [id number] [place] [address]- 1966 May, [facility] [place] [facility] [address] [id number] [place] [address]- 8136 Jan, [facility] [place] [facility] [address] [id number] [place] [address]- 2546 October, [facility] [place] [facility] [address] [id number] [place] [address]- 1436 Sep, [facility] [address] [id number] [place] [address]- 8038 Sep, [facility] [place] [facility] [address] [id number] [place] [address]- 5916 Sep, [facility] [place] [facility] [address] [id number] [place] [address]- 2216 Aug, [facility] [place] [facility] [address] [id number] [place] [address]- 3527 Aug, [facility] [address] [id number] [place] [address]- 6596 Aug, [facility] [place] [facility] [address] [id number] [place] [address] 2546 Aug, [facility] [place] [facility] [address] [id number] [address]- [address]606 Jun, [facility] [place] [facility] [address] [id number], [place] [address]- 2546 Mar, [facility] [place] [facility] [address] [id number] [place] [address]- 2546 Mar, [facility] [place] [facility] [address] [id number], [place] [address]- 2546 Aug, [facility] [place] [facility] [address] [id number] [place] [address]- 2546 Jun, [facility] [place] [facility] [address] [address] May, [facility] [address] [address]- 2307 Apr, [facility] [address] [address]- 89[address] Apr, [facility] [address] [address] Apr, [facility] [address] [address]- [address] Aug, [facility] [address] [place] [address]345- 4963 May, [facility] [address] [address]- 69[address] May, [facility] [address] [address]- 2424 Apr, [facility] [address] [address]- 9529 Apr, [facility] [address], [place] [address]- 8[address] Apr, [facility] [address] [address]- 2524 Apr, [facility] [address] [address]- [address] Mar, [facility] [id number] [address]- [address] Mar, IMMUNIZATIONS No Known Immunizations SOCIAL HISTORY Never Assessed REASON FOR VISIT JULIA thompson/chaka Tate MA PLAN OF CARE Activity Details Follow Up 4 Weeks Reason: VITAL SIGNS Height 72 in 2017-01-08 Weight 160.6 lbs 2017-01-08 Heart Rate 64 bpm 2017-01-08 Respiratory Rate 18 2017-01-08 BMI 21.78 kg/m2 2017-01-08 Blood pressure systolic 140 mmHg 2017-01-08 Blood pressure diastolic 76 mmHg 2017-01-08 MEDICATIONS Medication Instructions Dosage Frequency Start Date End Date Duration Status Amitriptyline HCl 25 MG Orally Once a day 1 tablet at bedtime 24h 30 days Active Vyvanse 50 MG Orally Once a day in morning 1 capsule Dec, 28 days Active Celexa 10 MG Orally Once a day at night 0.5 tablets Dec, 30 days Active RESULTS No Results PROCEDURES No Known procedures INSTRUCTIONS MEDICATIONS ADMINISTERED No Known Medications MEDICAL (GENERAL) HISTORY Type Description Date Medical History attention deficit hyperactivity disorder Medical History attention deficit disorder Medical History insomnia
--- OUTSIDE RECORDS SUMMARY | 2017-11-19 14:57 | XMS REPORT ---
Author Author BRIANNE SHAH [facility] Address [address] [place] [address] Care Team Providers Care Costing Manager Name Role Phone BRIANNE SHAH Unavailable PROBLEMS Type Condition ICD9-CM Code XCH44-NE Code Onset Dates Condition Status SNOMED Code Problem Oppositional defiant disorder F91.3 Active 15018423 Problem Mood disorder F39 Active 08801670 Problem Primary insomnia F51.01 Active 5080452 Problem Cannabis use, uncomplicated F12.90 Active 527486038 Problem Generalized anxiety disorder F41.1 Active 81189656 Problem Moderate episode of recurrent major depressive disorder F33.1 Active 875079788 Problem Insomnia, unspecified type G47.00 Active 127910118 Problem Family history of diabetes mellitus Z83.3 Active 792455914 Problem Encounter to establish care Z76.89 Active 747594022 Problem Attention deficit hyperactivity disorder (ADHD), unspecified ADHD type F90.9 Active 307746905 ALLERGIES Substance Reaction Event Type Date Status N.K.D.A. Unknown Non Drug Allergy Jun, Unknown SOCIAL HISTORY No smoking Hx information available PLAN OF CARE Activity Details Follow Up 6 Months Reason:for ADD VITAL SIGNS Height 72 in 2016-07-03 Weight 164.6 lbs 2016-07-03 Temperature 98.6 degrees Fahrenheit 2016-07-03 Heart Rate 68 bpm 2016-07-03 Respiratory Rate 18 2016-07-03 BMI 22.32 kg/m2 2016-07-03 Blood pressure systolic 130 mmHg 2016-07-03 Blood pressure diastolic 86 mmHg 2016-07-03 MEDICATIONS Medication Instructions Dosage Frequency Start Date End Date Duration Status Promethazine-Codeine 6.25-10 MG/5ML Orally every 6 hrs 5 -10 ml as needed for cough 6h Jun, Jun, 10 days Active Amitriptyline HCl 25 MG Orally Once a day at hs 1 tablet Active Vyvanse 50 mg Orally Once a day 1 capsule in the morning 24h Jun, 28 days Active Zithromax Z-Baldemar 250 MG Orally Once a day 2 tablets on the first day, then 1 tablet daily for 4 days 24h Jun, Jun, 5 day(s) Active RESULTS No Results PROCEDURES Procedure Date Ordered Related Diagnosis Body Site Office Visit, Est Pt., Level 3 Jul 03, 2016 FLUARIX QUAD P-FREE 3 AND UP .50 2015Jul 03, 2016 SINGLE IMMUNIZATION ADMIN Jul 03, 2016 IMMUNIZATIONS Vaccine Route Administration Date Status FLUARIX QUAD P-FREE 3 AND UP .50 2015 IM Intramuscular Jul 03, 2016 Administered
--- OUTSIDE RECORDS SUMMARY | 2017-11-19 14:57 | XMS REPORT ---
Author Author JAYESH EBONY Organization [facility] Address [address] [place] [address] Care Team Providers Care Concrete Mixing Truck Driver Name Role Phone REESEYAN EBONY Unavailable PROBLEMS Type Condition ICD9-CM Code [id number] Code Onset Dates Condition Status SNOMED Code Problem Oppositional defiant disorder F91.3 Active 80611451 Problem Mood disorder F39 Active 86114131 Problem Primary insomnia F51.01 Active 0421327 Problem Cannabis use, uncomplicated F12.90 Active 638167733 Problem Generalized anxiety disorder F41.1 Active 03450198 Problem Moderate episode of recurrent major depressive disorder F33.1 Active 337975496 Problem Insomnia, unspecified type G47.00 Active 736446444 Problem Family history of diabetes mellitus Z83.3 Active 010839262 Problem Encounter to establish care Z76.89 Active 762842642 Problem Attention deficit hyperactivity disorder (ADHD), unspecified ADHD type F90.9 Active 384302871 ALLERGIES No Information ENCOUNTERS Encounter Location Date Diagnosis [facility] [id number] [place] [address]29- 5433 Jan, [facility] [id number] [place] [address] 21648- 6028 Jan, [facility] [id number] [place] [address] 62561- 9909 Jan, Acute upper respiratory infection, unspecified J06.9 [facility] [id number] [place] [address]187 [address]9326 Jan, Acute nasopharyngitis (common cold) J00 [facility] [id number] [place] [address] 69864 -0825 Dec, [facility] [address] [address] Dec, Attention deficit hyperactivity disorder (ADHD), unspecified ADHD type F90.9 ; Moderate episode of recurrent major depressive disorder F33.1 and Generalized anxiety disorder F41.1 [facility] [address] [address] Dec, Low back pain M54.5 [facility] [address] [place] [address] 10606- 2048 Dec, [facility] [id number] [place] [address] 44056- 7028 Dec, [facility] [id number] [place] [address] 16477- 1636 Dec, [facility] [id number] [place] [address] 28566- 1208 Dec, Moderate episode of recurrent major depressive disorder F33.1 and Generalized anxiety disorder F41.1 [facility] [address] [place] [address] 82305- 7122 Nov, [facility] [id number] [place] [address] 09415- 9812 Nov, [facility] [id number] [place] [address] 88498- 6147 Nov, Attention deficit hyperactivity disorder (ADHD), unspecified ADHD type F90.9 ; Insomnia, unspecified type G47.00 and Low back pain M54.5 [facility] [address] [address] October, Insomnia, unspecified type G47.00 and Attention deficit hyperactivity disorder (ADHD), unspecified ADHD type F90.9 [facility] [address] [address] October, [facility] [address] [address] October, [facility] [id number] [place] [address] 33475- 1216 October, [facility] [id number] [address] Sep, Acute nasopharyngitis J00 [facility] [id number] [address] Aug, [facility] [address] [address] Jul, Attention deficit hyperactivity disorder (ADHD), unspecified ADHD type F90.9 [facility] [address] [address] Jun, Encounter for immunization Z23 ; Attention deficit hyperactivity disorder (ADHD), unspecified ADHD type F90.9 and Upper respiratory infection, acute J06.9 [facility] [address] [address] Jun, Attention deficit hyperactivity disorder (ADHD), unspecified ADHD type F90.9 [facility] [address] [address] 6[address] Jun, [facility] [address] [address] Jun, Attention deficit hyperactivity disorder (ADHD), unspecified ADHD type F90.9 [facility] [address] [address] 4[address] May, Attention deficit hyperactivity disorder (ADHD), unspecified ADHD type F90.9 [facility] [address] [address] Apr, [facility] [id number] [address] 5[address] Apr, Attention deficit hyperactivity disorder (ADHD), unspecified ADHD type F90.9 [facility] [id number] [address] Mar, [facility] [id number] [address] 06 Mar, 2016 Attention deficit hyperactivity disorder (ADHD), unspecified ADHD type F90.9 [facility] [id number] [address] 08 Feb, 2016 Attention deficit hyperactivity disorder (ADHD), unspecified ADHD type F90.9 [facility] [address] [place] [address] 92040- 5799 Jan, Attention deficit hyperactivity disorder (ADHD), unspecified ADHD type F90.9 [facility] [address] [place] [address] 01602- 4164 Dec, Attention deficit hyperactivity disorder (ADHD), unspecified ADHD type F90.9 [facility] [address] [place] [address] 80703- 0773 24 Nov, 2015 [facility] [id number] [place] [address] 29548- 7683 16 Nov, 2015 Encounter to establish care Z76.89 ; Attention deficit hyperactivity disorder (ADHD), unspecified ADHD type F90.9 ; Insomnia, unspecified type G47.00 and Family history of diabetes mellitus Z83.3 [facility] [address] [address] 13 Nov, 2015 [facility] [address] [address]- [address] 14 Sep, 2014 [facility] [address] [address] Sep, [facility] [address] [address] Jul, [facility] [id number] [address] Jul, [facility] [id number] [id number] May, [facility] [id number] [place] [address] 18157- 2546 May, [facility] [place] [facility] [address] [id number] [place] [address]- 0072 May, [facility] [place] [facility] [address] [id number] [place] [address]- 6230 May, [facility] [place] [facility] [address] [id number] [place] [address]- 9178 May, [facility] [place] [facility] [address] [id number] [place] [address]- 5091 May, [facility] [place] [facility] [address] [id number] [place] [address]- 6671 May, [facility] [place] [facility] [address] [id number] [place] [address]- 5837 May, [facility] [place] [facility] [address] [id number] [place] [address]- 6070 Apr, [facility] [place] [facility] [address] [id number] [place] [address]- 9813 Apr, [facility] [place] [facility] [address] [id number] [place] [address]- 9178 Feb, [facility] [place] [facility] [address] [id number] [place] [address]- 0465 Feb, [facility] [place] [facility] [address] [id number] [place] [address]- 9093 October, [facility] [place] [facility] [address] [id number] [place] [address]- 7836 October, [facility] [place] [facility] [address] [id number] [place] [address]- 5301 Sep, [facility] [place] [facility] [address] [id number] [place] [address]- 4435 Sep, [facility] [place] [facility] [address] [id number] [place] [address]- 6260 May, [facility] [place] [facility] [address] [id number] [place] [address]- 2546 May, [facility] [address] [id number] [place] [address]- 1991 Jan, [facility] [address] [id number] [place] [address]- 2546 October, [facility] [address] [id number] [place] [address]- 5066 Sep, [facility] [address] [id number] [place] [address]- 2546 Sep, [facility] [address] [id number] [place] [address]- 8156 Sep, [facility] [address] [id number] [place] [address]- 4686 Aug, [facility] [address] [id number] [place] [address]- 5056 Aug, [facility] [address] [id number] [place] [address]- 2586 Aug, [facility] [address] [id number] [place] [address]- 8086 Aug, [facility] [address] [id number] [place] [address]- 1568 Jun, [facility] [address] [id number] [place] [address]- 2546 Mar, [facility] [address] [id number] [place] [address]- 2546 Mar, [facility] [address] [id number] [place] [address]- 0126 Aug, [facility] [address] [id number] [place] [address]- 2546 Jun, [facility] [address] [id number] [place] [address]- 2546 May, [facility] [address] [facility] [id number] [address]- [address] 29 Apr, 2011 [facility] [address] [facility] [id number] [address]- 8066 Apr, [facility] [address] [facility] [id number] [address]- 1786 Apr, [facility] [address] [facility] [id number] [address]- 4056 Aug, [facility] [address] [facility] [id number] [place] [address] May, [facility] [address] [address]- 6246 May, [facility] [address] [address]- 9401 Apr, [facility] [address] [address]- 0373 Apr, [facility] [address] [address]- 0600 Apr, [facility] [address] [address]- 1790 Apr, [facility] [address] [address]- 0079 Mar, [facility] [id number] [address]- [address] Mar, IMMUNIZATIONS No Known Immunizations SOCIAL HISTORY Never Assessed REASON FOR VISIT Vomitting and Nausea PLAN OF CARE VITAL SIGNS MEDICATIONS Unknown Medications RESULTS No Results PROCEDURES No Known procedures INSTRUCTIONS MEDICATIONS ADMINISTERED No Known Medications MEDICAL (GENERAL) HISTORY Type Description Date Medical History attention deficit hyperactivity disorder Medical History attention deficit disorder Medical History insomnia
--- OUTSIDE RECORDS SUMMARY | 2017-11-19 14:57 | XMS REPORT ---
Author Author BRIANNE SHAH [facility] Address [address] [place] [address] Care Team Providers Care Storage Garage Attendant Name Role Phone BRIANNE SHAH Unavailable PROBLEMS Type Condition ICD9-CM Code [id number] Code Onset Dates Condition Status SNOMED Code Problem Oppositional defiant disorder F91.3 Active 20572915 Problem Mood disorder F39 Active 27298493 Problem Primary insomnia F51.01 Active 5372961 Problem Cannabis use, uncomplicated F12.90 Active 389140910 Problem Generalized anxiety disorder F41.1 Active 99534906 Problem Moderate episode of recurrent major depressive disorder F33.1 Active 269519243 Problem Insomnia, unspecified type G47.00 Active 579141971 Problem Family history of diabetes mellitus Z83.3 Active 301507936 Problem Encounter to establish care Z76.89 Active 539495901 Problem Attention deficit hyperactivity disorder (ADHD), unspecified ADHD type F90.9 Active 139516713 ALLERGIES Unknown Allergies SOCIAL HISTORY No smoking Hx information available PLAN OF CARE VITAL SIGNS MEDICATIONS Unknown Medications RESULTS No Results PROCEDURES No Known procedures IMMUNIZATIONS No Known Immunizations
--- OUTSIDE RECORDS SUMMARY | 2017-11-19 14:57 | XMS REPORT ---
Author Author BRIANNE SHAH Organization [facility] Address [address] [place] [address] Care Team Providers Care Pulp Mixer Name Role Phone BRIANNE SHAH Unavailable PROBLEMS Type Condition ICD9-CM Code [id number] Code Onset Dates Condition Status SNOMED Code Problem Oppositional defiant disorder F91.3 Active 23994392 Problem Mood disorder F39 Active 53191012 Problem Primary insomnia F51.01 Active 1333936 Problem Cannabis use, uncomplicated F12.90 Active 127076030 Problem Generalized anxiety disorder F41.1 Active 49413843 Problem Moderate episode of recurrent major depressive disorder F33.1 Active 691205318 Problem Insomnia, unspecified type G47.00 Active 403322913 Problem Family history of diabetes mellitus Z83.3 Active 674413239 Problem Encounter to establish care Z76.89 Active 020415444 Problem Attention deficit hyperactivity disorder (ADHD), unspecified ADHD type F90.9 Active 255606676 ALLERGIES No Information ENCOUNTERS Encounter Location Date Diagnosis [facility] [id number] [place] [address]360- 2191 Jan, [facility] [id number] [place] [address] 30439- 2685 Jan, [facility] [id number] [place] [address] 65843- 1821 Jan, Acute upper respiratory infection, unspecified J06.9 [facility] [id number] [place] [address]62 -3318 Jan, Acute nasopharyngitis (common cold) J00 [facility] [id number] [place] [address]324 -4797 Dec, [facility] [address] [address] Dec, Attention deficit hyperactivity disorder (ADHD), unspecified ADHD type F90.9 ; Moderate episode of recurrent major depressive disorder F33.1 and Generalized anxiety disorder F41.1 [facility] [address] [address] Dec, Low back pain M54.5 [facility] [address] [place] [address] 64678- 3549 Dec, [facility] [id number] [place] [address]12[address]- 1969 Dec, [facility] [id number] [place] [address] 25375- 9120 Dec, [facility] [id number] [place] [address] 36325- 7776 Dec, Moderate episode of recurrent major depressive disorder F33.1 and Generalized anxiety disorder F41.1 [facility] [address] [place] [address] 84960- 0214 Nov, [facility] [address] [place] [address] 77096- 9831 Nov, [facility] [id number] [place] [address] 09179- 3934 Nov, Attention deficit hyperactivity disorder (ADHD), unspecified ADHD type F90.9 ; Insomnia, unspecified type G47.00 and Low back pain M54.5 [facility] [address] [address] October, Insomnia, unspecified type G47.00 and Attention deficit hyperactivity disorder (ADHD), unspecified ADHD type F90.9 [facility] [address] [address] October, [facility] [address] [address] October, [facility] [id number] [address] 405[address] October, [facility] [id number] [address] 27[address] Sep, Acute nasopharyngitis J00 [facility] [address] [address] 2[address] Aug, [facility] [id number] [address] Jul, Attention deficit hyperactivity disorder (ADHD), unspecified ADHD type F90.9 [facility] [address] [address] 9[address] Jun, Attention deficit hyperactivity disorder (ADHD), unspecified ADHD type F90.9 ; Encounter for immunization Z23 and Upper respiratory infection, acute J06.9 [facility] [address] [address] 2691 Jun, Attention deficit hyperactivity disorder (ADHD), unspecified ADHD type F90.9 [facility] [address] [address] 6245 Jun, [facility] [address] [address] 8063 Jun, Attention deficit hyperactivity disorder (ADHD), unspecified ADHD type F90.9 [facility] [address] [address] 80[address] May, Attention deficit hyperactivity disorder (ADHD), unspecified ADHD type F90.9 [facility] [address] [address] 8246 Apr, [facility] [address] [address] 5581 Apr, Attention deficit hyperactivity disorder (ADHD), unspecified ADHD type F90.9 [facility] [id number] [address] 92[address] Mar, [facility] [address] [address] 06 Mar, 2016 Attention deficit hyperactivity disorder (ADHD), unspecified ADHD type F90.9 [facility] [address] [address] 08 Feb, 2016 Attention deficit hyperactivity disorder (ADHD), unspecified ADHD type F90.9 [facility] [address] [place] [address] 81113- 3536 Jan, Attention deficit hyperactivity disorder (ADHD), unspecified ADHD type F90.9 [facility] [address] [place] [address] 32624- 8646 Dec, Attention deficit hyperactivity disorder (ADHD), unspecified ADHD type F90.9 [facility] [address] [address]- 399[address] 24 Nov, 2015 [facility] [id number] [place] [address] 59838- 3652 16 Nov, 2015 Encounter to establish care Z76.89 ; Attention deficit hyperactivity disorder (ADHD), unspecified ADHD type F90.9 ; Insomnia, unspecified type G47.00 and Family history of diabetes mellitus Z83.3 [facility] [address] [address]- 2536 13 Nov, 2015 [facility] [address] [address]- 4900 14 Sep, 2014 [facility] [address] [address]- 9693 Sep, [facility] [address] [address]- 3744 Jul, [facility] [address] [address]- 0398 Jul, [facility] [id number] [address] May, [facility] [id number] [place] [address] 15574- 0783 May, [facility] [place] [facility] [address] [id number] [place] May, [facility] [place] [facility] [address] [id number] [place] [address]- 4940 May, [facility] [place] [facility] [address] [id number] [place] [address] May, [facility] [place] [facility] [address] [id number] [place] [address] May, [facility] [place] [facility] [address] [id number] [place] [address] May, [facility] [place] [facility] [address] [id number] [place] [address] May, [facility] [place] [facility] [address] [id number] [place] [address]- 0441 Apr, [facility] [place] [facility] [address] [id number] [place] [address]- 7242 Apr, [facility] [place] [facility] [address] [id number] [place] [address]- 6881 Feb, [facility] [place] [facility] [address] [id number] [place] [address]- 5756 Feb, [facility] [place] [facility] [address] [id number] [place] [address]- 6518 October, [facility] [place] [facility] [address] [id number] [place] [address]- 3519 October, [facility] [place] [facility] [address] [id number] [place] [address]- 0738 Sep, [facility] [place] [facility] [address] [id number] [place] [address]- 1053 Sep, [facility] [place] [facility] [address] [id number] [place] [address] May, [facility] [place] [facility] [address] [id number] [place] [address]- 2546 May, [facility] [address] [id number] [place] [address]- 3696 Jan, [facility] [address] [id number] [place] [address]- 2546 October, [facility] [address] [id number] [place] [address] 2546 Sep, [facility] [address] [id number] [place] [address]- 2546 Sep, [facility] [address] [id number] [place] [address]- 3026 Sep, [facility] [address] [id number] [place] [address]- 7976 Aug, [facility] [address] [id number] [place] [address]- 0266 Aug, [facility] [address] [id number] [place] [address]- 2566 Aug, [facility] [address] [id number] [place] [address]- 0446 Aug, [facility] [address] [id number] [place] [address]- 7326 Jun, [facility] [address] [id number] [place] [address]- 2546 Mar, [facility] [address] [id number] [place] [address]- 2546 Mar, [facility] [place] [facility] [address] [id number] [place] [address]- 2546 Aug, [facility] [place] [facility] [address] [id number] [place] [address]- 2546 Jun, [facility] [address] [id number] [place] [address]- 2546 May, [facility] [address] [facility] [id number] [address]- 7527 Apr, [facility] [address] [facility] [id number] [address]- 1701 Apr, [facility] [address] [facility] [id number] [address]- 8388 Apr, [facility] [address] [facility] [id number] [address]- 9585 Aug, [facility] [address] [facility] [id number] [address]- 0596 May, [facility] [address] [facility] [id number] [address] May, [facility] [address] [address]- 1873 Apr, [facility] [address] [address]- 5362 Apr, [facility] [address] [address]- 2572 Apr, [facility] [address] [address]- 9008 Apr, [facility] [id number] [address]- 2573 Mar, [facility] [id number] [address]- 3838 Mar, IMMUNIZATIONS No Known Immunizations SOCIAL HISTORY Never Assessed REASON FOR VISIT refill PLAN OF CARE VITAL SIGNS MEDICATIONS Unknown Medications RESULTS No Results PROCEDURES No Known procedures INSTRUCTIONS MEDICATIONS ADMINISTERED No Known Medications MEDICAL (GENERAL) HISTORY Type Description Date Medical History attention deficit hyperactivity disorder Medical History attention deficit disorder Medical History insomnia
--- NOTE | 2017-11-19 15:06 | ED Abdominal Pain ---
General Chief Complaint: Abdominal/GI Problems Stated Complaint: THROWING UP/D Source of Information: Patient Exam Limitations: No Limitations History of Present Illness Date Seen by Provider: Nov 19, 2017 Time Seen by Provider: 15:05 Initial Comments to ER per private vehicle with reports of a three-day history of a nonproductive cough, nausea vomiting and diarrhea. No abdominal pain. No fevers but he has had chills. Timing/Duration: 2-3 Days Severity/Quality: Moderate Location: Generalized Abdomen Radiation: No Radiation Activities at Onset: None Associated Symptoms: Denies Symptoms, Nausea/Vomiting Allergies and Home Medications Allergies Coded Allergies: No Known Drug Allergies (Unverified , 02/20/10) Home Medications Amitriptyline Hcl 25 Mg Tablet, 25 MG PO DAILY PRN for MIGRAINE, (Reported) Lisdexamfetamine Dimesylate 50 Mg Capsule, 50 MG PO DAILY, (Reported) Ondansetron 8 Mg Tab.rapdis, 8 MG PO Q6H PRN for NAUSEA/VOMITING-1ST LINE Prescribed by: IVAN MYERS on 11/19/17 1528 Patient Home Medication List Home Medication List Reviewed: Yes Review of Systems Constitutional: see HPI EENTM: No Symptoms Reported Respiratory: No Symptoms Reported Cardiovascular: No Symptoms Reported Gastrointestinal: See HPI, Abdominal Pain, Diarrhea, Nausea, Vomiting Genitourinary: No Symptoms Reported Musculoskeletal: no symptoms reported Skin: no symptoms reported Psychiatric/Neurological: No Symptoms Reported Endocrine: No Symptoms Reported Hematologic/Lymphatic: No Symptoms Reported Past Diswftn-Yrtclb-Fexirx Hx Patient Social History Recent Foreign Travel: No Contact w/Someone Who Travel: No Past Medical History Reproductive Disorders: No Sexually Transmitted Disease: No HIV/AIDS: No ADD/ADHD Family Medical History Diabetes mellitus 19 MOTHER Hypertension 19 MOTHER No Family History of: Arthritis Myocardial infarction Respiratory disorder Seizure disorder Physical Exam Vital Signs Vital Signs - First Documented 11/19/17 14:56 Temp 98.2 Pulse 77 Resp 18 B/P (MAP) 129/63 (85) Pulse Ox 99 Capillary Refill : General Appearance: WD/WN, no apparent distress HEENT: PERRL/EOMI, normal ENT inspection Neck: non-tender, full range of motion Respiratory: no respiratory distress, no accessory muscle use Cardiovascular: regular rate, rhythm, no murmur Gastrointestinal: normal bowel sounds, non tender, soft Extremities: normal range of motion, non-tender Neurologic/Psychiatric: alert, normal mood/affect, oriented x 3 Skin: normal color, warm/dry Progress/Results/Core Measures Results/Orders Lab Results Laboratory Tests Test 11/19/17 15:00 11/19/17 15:05 Range/Units White Blood Count 4.9 4.3-11.0 10^3/uL Red Blood Count 4.94 4.35-5.85 10^6/uL Hemoglobin 13.7 13.3-17.7 G/DL Hematocrit 41 40-54 % Mean Corpuscular Volume 84 80-99 FL Mean Corpuscular Hemoglobin 28 25-34 PG Mean Corpuscular Hemoglobin Concent 33 32-36 G/DL Red Cell Distribution Width 13.1 10.0-14.5 % Platelet Count 236 130-400 10^3/uL Mean Platelet Volume 9.1 7.4-10.4 FL Neutrophils (%) (Auto) 50 42-75 % Lymphocytes (%) (Auto) 34 12-44 % Monocytes (%) (Auto) 9 0-12 % Eosinophils (%) (Auto) 6 0-10 % Basophils (%) (Auto) 1 0-10 % Neutrophils # (Auto) 2.5 1.8-7.8 X 10^3 Lymphocytes # (Auto) 1.7 1.0-4.0 X 10^3 Monocytes # (Auto) 0.4 0.0-1.0 X 10^3 Eosinophils # (Auto) 0.3 0.0-0.3 10^3/uL Basophils # (Auto) 0.0 0.0-0.1 10^3/uL Sodium Level 140 135-145 MMOL/L Potassium Level 4.0 3.6-5.0 MMOL/L Chloride Level 108 H 98-107 MMOL/L Carbon Dioxide Level 25 21-32 MMOL/L Anion Gap 7 5-14 MMOL/L Blood Urea Nitrogen 10 7-18 MG/DL Creatinine 0.97 0.60-1.30 MG/DL Estimat Glomerular Filtration Rate > 60 BUN/Creatinine Ratio 10 Glucose Level 92 70-105 MG/DL Calcium Level 9.5 8.5-10.1 MG/DL Total Bilirubin 0.5 0.1-1.0 MG/DL Aspartate Amino Transf (AST/SGOT) 23 5-34 U/L Alanine Aminotransferase (ALT/SGPT) 16 0-55 U/L Alkaline Phosphatase 82 40-136 U/L Total Protein 7.5 6.4-8.2 GM/DL Albumin 4.4 3.2-4.5 GM/DL Lipase 20 8-78 U/L Urine Color YELLOW Urine Clarity CLEAR Urine pH 6 5-9 Urine Specific [place] 1.020 1.016-1.022 Urine Protein 2+ H NEGATIVE Urine Glucose (UA) NEGATIVE NEGATIVE Urine Ketones NEGATIVE NEGATIVE Urine Nitrite NEGATIVE NEGATIVE Urine Bilirubin NEGATIVE NEGATIVE Urine Urobilinogen 4 H NORMAL MG/DL Urine Leukocyte Esterase 1+ H NEGATIVE Urine RBC (Auto) 4+ H NEGATIVE Urine RBC 10-25 H /HPF Urine WBC 2-5 /HPF Urine Squamous Epithelial Cells 0-2 /HPF Urine Crystals NONE /LPF Urine Bacteria NONE /HPF Urine Casts NONE /LPF Urine Mucus SMALL H /LPF Urine Culture Indicated NO My Orders Orders - IVAN MYERS APRN Cbc With Automated Diff (11/19/17 15:01) Comprehensive Metabolic Panel (11/19/17 15:01) Ua Culture If Indicated (11/19/17 15:01) Lipase (11/19/17 15:01) Iv Heplock-Insert (Order) (11/19/17 15:01) Ns Iv 1000 Ml (Sodium Chloride 0.9%) (11/19/17 15:15) Ondansetron Injection (Zofran Injectio (11/19/17 15:15) Chest Pa/Lat (2 View) (11/19/17 15:01) Medications Given in ED Current Medications Medications Dose Ordered Sig/Kayla Route Start Time Stop Time Status Last Admin Dose Admin Ondansetron HCl 8 mg ONCE ONCE IVP 11/19/17 15:15 11/19/17 15:16 DC 11/19/17 15:13 8 MG Vital Signs/I&O 11/19/17 14:56 Temp 98.2 Pulse 77 Resp 18 B/P (MAP) 129/63 (85) Pulse Ox 99 Departure Communication (Admissions) 1541- alert, no distress, sitting up on the edge of the bed, states that he feels much better. I'll discharge him now. Impression Primary Impression: Nausea vomiting and diarrhea Disposition: HOME, SELF-CARE Condition: Stable Departure-Patient Inst. Decision time for Depature: 15:26 Referrals: NO,LOCAL PHYSICIAN (PCP/Family) Primary Care Physician Patient Instructions: Nausea and Vomiting, Adult Add. Discharge Instructions: 1. Nausea medication as directed 2. Clear liquids only for the next 24 hours 3. Return to ER for any concerns 4. See her doctor next week for recheck All discharge instructions reviewed with patient and/or family. Voiced understanding. Scripts Ondansetron (Zofran Odt) 8 Mg Tab.rapdis 8 MG PO Q6H PRN for NAUSEA/VOMITING-1ST LINE, #10 TAB Prov: IVAN MYERS APRN 11/19/17 Work/School Note: Work Release Form Date Seen in the Emergency Department: Nov 19, 2017 Return to Work: Nov 21, 2017 IVAN MYERS APRN Nov 19, 2017 15:06
[2017-11-19 15:09] LABS: BASOPHILS % (AUTO) 1 % (0-10); EOSINOPHILS # (AUTO) 0.3 10^3/uL (0.0-0.3); EOSINOPHILS % (AUTO) 6 % (0-10); HEMATOCRIT 41 % (40-54); HEMOGLOBIN 13.7 G/DL (13.3-17.7); LYMPHOCYTES # (AUTO) 1.7 X 10^3 (1.0-4.0); LYMPHOCYTES % (AUTO) 34 % (12-44); MEAN CORPUSCULAR HEMOGLOBIN 28 PG (25-34); MEAN CORPUSCULAR HGB CONC 33 G/DL (32-36); MEAN CORPUSCULAR VOLUME 84 FL (80-99); MEAN PLATELET VOLUME 9.1 FL (7.4-10.4); MONOCYTES # (AUTO) 0.4 X 10^3 (0.0-1.0); MONOCYTES % (AUTO) 9 % (0-12); NEUTROPHILS # (AUTO) 2.5 X 10^3 (1.8-7.8); NEUTROPHILS % (AUTO) 50 % (42-75); PLATELET COUNT 236 10^3/uL (130-400); RED BLOOD COUNT 4.94 10^6/uL (4.35-5.85); RED CELL DISTRIBUTION WIDTH 13.1 % (10.0-14.5); WHITE BLOOD COUNT 4.9 10^3/uL (4.3-11.0)
[2017-11-19 15:15] LABS: BILIRUBIN,URINE NEGATIVE (NEGATIVE); CLARITY,URINE CLEAR; COLOR,URINE YELLOW; GLUCOSE, URINE (UA) NEGATIVE (NEGATIVE); KETONES,URINE NEGATIVE (NEGATIVE); LEUKOCYTE ESTERASE ,URINE 1+ (NEGATIVE); NITRITE,URINE NEGATIVE (NEGATIVE); PH,URINE 6 (5-9); PROTEIN,URINE 2+ (NEGATIVE); UROBILINOGEN,URINE 4 MG/DL (NORMAL)
[2017-11-19] MEDS ORDERED: ONDANSETRON 4 MG/2 ML (SDV) Z0FRAN IVP ONE (15:15)
[2017-11-19] MEDS ORDERED: NS IV 1000 ML 1,000 ML IV SCH (15:15)
[2017-11-19 15:25] LABS: ALANINE AMINOTRANSFERASE 16 U/L (0-55); ALBUMIN 4.4 GM/DL (3.2-4.5); ALKALINE PHOSPHATASE 82 U/L (40-136); BILIRUBIN,TOTAL 0.5 MG/DL (0.1-1.0); BUN/CREATININE RATIO 10; CALCIUM 9.5 MG/DL (8.5-10.1); CARBON DIOXIDE 25 MMOL/L (21-32); CHLORIDE 108 MMOL/L (98-107); CREATININE SERUM 0.97 MG/DL (0.60-1.30); GFR ESTIMATED > 60; GLUCOSE 92 MG/DL (70-105); LIPASE 20 U/L (8-78); SODIUM 140 MMOL/L (135-145); TOTAL PROTEIN 7.5 GM/DL (6.4-8.2)
[2017-11-19 15:27] LABS: SQUAMOUS EPITHELIAL CELL,UR 0-2 /HPF
[2017-11-19] MEDS ORDERED: ONDA8TAB9 PO (15:28)
--- NOTE | 2017-11-19 15:35 | Diagnostic Imaging Report ---
INDICATION: Cough and chest pain. PA and lateral chest. FINDINGS: Heart size and pulmonary vascularity are normal. Lungs are clear. There are no effusions or pneumothoraces. IMPRESSION: Negative chest. Dictated by: Dictated on workstation # [id number]
[2017-11-19 15:40] VITALS: BP 129/63
== END 2017-11-19 15:40 | disposition home or self-care (01) ==
LOC: EDUNIT# 14:49 → ER 14:51
DX: R11.2 Nausea with vomiting, unspecified (principal); R19.7 Diarrhea, unspecified; F90.9 Attention-deficit hyperactivity disorder, unspecified type
CPT/HCPCS: 36415; 71046; 80053; 81000; 83690; 85025; 96361; 96374

== ENCOUNTER 2021-01-03 23:39 | Emergency (ER) | payer SELFPAY ==
[~2021-01-03] VITALS: Ht 185 cm; Wt 81.0 kg
[~2021-01-03 23:39] MED LIST changes: +ONDA8TAB9 PO
[2021-01-03 23:58] VITALS: BP 139/102
[2021-01-04] MEDS ORDERED: LIDO20SO23 MM (00:03)
[2021-01-04] MEDS ORDERED: AMOX875T2 PO (00:03)
[2021-01-04] MEDS ORDERED: NAPR500T8 PO (00:03)
--- NOTE | 2021-01-04 00:03 | ED EENT ---
History of Present Illness General Chief Complaint: Dental Problems/Pain Stated Complaint: WISDOM TOOTH PAIN MOVING TO BACK OF HEAD & NECK Nursing Triage Note: Pt reports R upper tooth pain, possible broken tooth. Source: patient History of Present Illness Date Seen by Provider: Jan 03, 2021 Time Seen by Provider: 23:55 Initial Comments PT ARRIVES VIA POV FROM HOME C/O PAIN TO RIGHT UPPER WISDOM TOOTH FOR THE LAST 3-4 DAYS HAS HAD A LITTLE SWELLING TO RIGHT CHEEK NO FEVER HAS NOT SEEN A DENTIST IN YEARS, BUT HAS BEEN TO [facility] IN THE PAST HAS NOT ATTEMPTED TO CONTACT A DENTIST OR SEE ANYONE FOR THIS PROBLEM PRIOR TO TONIGHT HAS NOT TAKEN ANYTHING FOR SYMPTOMS HAS BEEN DRINKING ALCOHOL TONIGHT PT HAS NOT RECEIVED COVID-19 VACCINE PT DENIES ANY SICK CONTACTS PT IS UNEMPLOYED PCP: [facility] Allergies and Home Medications Allergies Coded Allergies: No Known Drug Allergies (Unverified , 02/20/10) Home Medications Amitriptyline Hcl 25 Mg Tablet, 25 MG PO DAILY PRN for MIGRAINE, (Reported) Amoxicillin 875 Mg Tablet, 875 MG PO BID Prescribed by: NAA MITCHELL on 01/04/21 0003 Lidocaine HCl 15 Ml Solution, 1-2 ML MM [id number] Prescribed by: NAA MITCHELL on 01/04/21 0003 Lisdexamfetamine Dimesylate 50 Mg Capsule, 50 MG PO DAILY, (Reported) Naproxen 500 Mg Tablet.dr, 500 MG PO BID Prescribed by: NAA MITCHELL on 01/04/21 0003 Ondansetron 8 Mg Tab.rapdis, 8 MG PO Q6H PRN for NAUSEA/VOMITING-1ST LINE Prescribed by: IVAN MYERS on 11/19/17 1528 Patient Home Medication List Home Medication List Reviewed: Yes Review of Systems Review of Systems Constitutional: no symptoms reported Eyes: No Symptoms Reported Ears: No Symptoms Reported Mouth: see HPI Throat: no symptoms reported Respiratory: no symptoms reported Cardiovascular: no symptoms reported Gastrointestinal: no symptoms reported Musculoskeletal: no symptoms reported Skin: no symptoms reported Neurological: No Symptoms Reported Hematologic/Lymphatic: No Symptoms Reported Immunological/Allergic: no symptoms reported Past Lobjeee-Osyouq-Ihzdda Hx Patient Social History Tobacco Use?: Yes (1 PPD) Tobacco type used: Cigarettes Smoking Status: Current Everyday Smoker Smokeless Tobacco Frequency: Never a User Use of E-Cig and/or Vaping dev: No Use of E-Cig and/or Vaping Gerber: Never a User Substance use?: No Alcohol Use?: Yes (6 PACK/WEEK) Alcohol type: Beer Alcohol Frequency: Couple times a week Pt feels they are or have been: No Past Medical History Surgery/Hospitalization HX: hx of heart murmur Surgeries: No Respiratory: No 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) Heart Murmur Neurological: No Reproductive Disorders: No Sexually Transmitted Disease: No HIV/AIDS: No Genitourinary: No Gastrointestinal: No Musculoskeletal: No Endocrine: No Cancer: No Psychosocial: Yes ADD/ADHD Integumentary: No Blood Disorders: No Family Medical History Diabetes mellitus 19 MOTHER Hypertension 19 MOTHER No Family History of: Arthritis Myocardial infarction Respiratory disorder Seizure disorder Physical Exam Vital Signs Vital Signs - First Documented 01/03/21 23:58 Temp 36.0 Pulse 74 Resp 18 B/P (MAP) 139/102 (114) Pulse Ox 97 O2 Delivery Room Air Height, Weight, BMI Height: 6'1.00" Weight: 170lbs. 0oz. 77.465761hv; 23.00 BMI Method:Stated General Appearance: WD/WN, no apparent distress Eyes: bilateral eye normal inspection Ears: bilateral ear auricle normal, bilateral ear canal normal, bilateral ear TM normal Nose: normal inspection Mouth/Throat: pharynx normal, dental tenderness; No excessive drooling, No trismus, No voice changes; other (RIGHT UPPER 3RD MOLAR PARTIALLY ERUPTED WITH MILD SURROUNDING GUM SWELLING AND SLIGHT ERYTHEMA, VERY TENDER TO PALPATION. NO APPRECIABLE SWELLING TO FACE. 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 Decision time for Depature: 00:01 Referrals: [facility] Patient Instructions: Dental Pain (DC), Impacted Tooth (DC) Add. Discharge Instructions: FREQUENT SALT WATER SWISHES TYLENOL NEEDED FOR PAIN FOLLOW UP WITH DENTIST SOON POSSIBLE--CALL IN AM FOR APPOINTMENT All discharge instructions reviewed with patient and/or family. Voiced understanding. Scripts Naproxen (Naproxen) 500 Mg Tablet.dr 500 MG PO BID, #20 TAB Prov: NAA MITCHELL DO 01/04/21 Lidocaine HCl (Lidocaine HCl Viscous) 15 Ml Solution 1-2 ML MM [id number], #120 ML Prov: NAA MITCHELL DO 01/04/21 Amoxicillin (Amoxicillin) 875 Mg Tablet 875 MG PO BID, #20 TAB Prov: NAA MITCHELL DO 01/04/21 NAA MITCHELL DO Jan 04, 2021 00:03
== END 2021-01-04 00:25 | disposition home or self-care (01) ==
LOC: EDUNIT# 23:39 → ER 23:45
DX: K01.1 Impacted teeth (principal); F17.210 Nicotine dependence, cigarettes, uncomplicated
CPT/HCPCS: 99282

== ENCOUNTER 2021-02-06 17:52 | Emergency (ER) | payer SELFPAY ==
[~2021-02-06] VITALS: Ht 187 cm; Wt 81.8 kg
[~2021-02-06 17:52] MED LIST changes: +AMOX875T2 PO; +LIDO20SO23 MM; +NAPR500T8 PO
[2021-02-06 17:58] VITALS: BP 122/87
[2021-02-06] MEDS ORDERED: AMOX400S9 PO (18:12)
[2021-02-06] MEDS ORDERED: NFCHLORHGL MM (18:12)
--- NOTE | 2021-02-06 18:12 | ED EENT ---
History of Present Illness General Chief Complaint: Dental Problems/Pain Stated Complaint: GUM INFECTION Source: patient Exam Limitations: no limitations History of Present Illness Date Seen by Provider: Feb 06, 2021 Time Seen by Provider: 17:58 Initial Comments Patient to the ER by private conveyance with chief complaint that he has a right lower tooth that has swelling pain and some minimal bloody discharge. He is planning on getting dental insurance in the middle of February, 3 to 4 weeks from now. He had to come in earlier a few weeks ago and get some amoxicillin liquid for her right upper tooth and he spelt one of the bottles on accident. He does not like pills because they get stuck in his throat. He prefers liquids. He states that while his right upper tooth has improved since then his right lower tooth has started to hurt. He does not have a primary care provider. Allergies and Home Medications Allergies Coded Allergies: No Known Drug Allergies (Unverified , 02/20/10) Home Medications Amitriptyline Hcl 25 Mg Tablet, 25 MG PO DAILY PRN for MIGRAINE, (Reported) Amoxicillin 875 Mg Tablet, 875 MG PO BID Prescribed by: NAA MITCHELL on 01/04/21 0003 Lidocaine HCl 15 Ml Solution, 1-2 ML MM [id number] Prescribed by: NAA MITCHELL on 01/04/21 0003 Lisdexamfetamine Dimesylate 50 Mg Capsule, 50 MG PO DAILY, (Reported) Naproxen 500 Mg Tablet.dr, 500 MG PO BID Prescribed by: NAA MITCHELL on 01/04/21 0003 Ondansetron 8 Mg Tab.rapdis, 8 MG PO Q6H PRN for NAUSEA/VOMITING-1ST LINE Prescribed by: IVAN MYERS on 11/19/17 1528 Patient Home Medication List Home Medication List Reviewed: Yes Review of Systems Review of Systems Constitutional: No chills, No fever Eyes: Denies Blindness, Denies Drainage Ears: Denies Dizziness, Denies Pain Nose: denies clots, denies congestion Mouth: see HPI; denies clots, denies loose teeth Throat: denies pain, denies swelling All Other Systems Reviewed Negative Unless Noted: Yes Past Dtcaomn-Aexjjn-Yaexju Hx Patient Social History Tobacco Use?: Yes Tobacco type used: Cigarettes Smoking Status: Current Everyday Smoker Use of E-Cig and/or Vaping dev: No Past Medical History Surgery/Hospitalization HX: hx of heart murmur Surgeries: No Respiratory: No 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 0oz. 77.521537ta; 23.00 BMI Method:Stated General Appearance: WD/WN, no apparent distress Eyes: bilateral eye normal inspection, bilateral eye PERRL, bilateral eye EOMI Ears: bilateral ear auricle normal, bilateral ear canal normal Nose: normal inspection; No active bleeding Mouth/Throat: other (Mild gingival swelling but no pointing or area of fluctuance palpable. Mild to moderate dental caries throughout.) Progress/Results/Core Measures Progress Progress Note : Time: 18:09 Progress Note Amoxicillin 500 mg 3 times daily liquid x10 days. Departure Impression Primary Impression: Dental caries Disposition: HOME, SELF-CARE Condition: Stable Departure-Patient Inst. Decision time for Depature: 18:10 Referrals: NO,LOCAL PHYSICIAN (PCP/Family) Primary Care Physician Patient Instructions: Tooth Abscess (DC), Gingivitis (DC) Add. Discharge Instructions: Amoxicillin 500 mg or 6.25 mL 3 times a day for the next 10 days. Follow-up with a dentist. Magic mouthwash swish and spit 15 mL twice a day for the next week. All discharge instructions reviewed with patient and/or family. Voiced understanding. Scripts Amoxicillin (Amoxicillin) 400 Mg/5 Ml Susp.recon 500 MG PO TID for 10 Days, #200 ML 0 Refills Prov: PETER LANGSTON 02/06/21 Chlorhexidine Gluconate (Chlorhexidine Gluconate) 473 Ml Mouthwash 15 ML MM BID for 7 Days, #473 ML 0 Refills Prov: PETER LANGSTON 02/06/21 PETER LANGSTON Feb 06, 2021 18:12
== END 2021-02-06 18:22 | disposition home or self-care (01) ==
LOC: EDUNIT# 17:52 → ER 17:55
DX: K02.9 Dental caries, unspecified (principal); F17.210 Nicotine dependence, cigarettes, uncomplicated; F90.9 Attention-deficit hyperactivity disorder, unspecified type; Z79.899 Other long term (current) drug therapy
CPT/HCPCS: 99282

== ENCOUNTER 2021-11-12 21:14 | Emergency (ER) | payer SELFPAY ==
[~2021-11-12] VITALS: Ht 185 cm; Wt 81.0 kg
[~2021-11-12 21:14] MED LIST changes: +AMOX400S9 PO; +NFCHLORHGL MM
--- NOTE | 2021-11-12 21:28 | ED General ---
General Stated Complaint: N/V,CHILLS,FEVER,HEADACHE Source of Information: Patient Exam Limitations: No Limitations History of Present Illness Date Seen by Provider: November 12, 2021 Time Seen by Provider: 21:28 Initial Comments To ER by private vehicle accompanied by his girlfriend. Both of whom are being seen for the same symptoms including headache, low back pain, body aches, nausea, vomiting, abdominal cramping, cough, rhinorrhea, sore throat and chills onset today. Unvaccinated against COVID. Timing/Duration: 12-24 Hours Severity: Moderate Associated Systoms: Headaches, Malaise, Nausea/Vomiting Allergies and Home Medications Allergies Coded Allergies: No Known Drug Allergies (Unverified , 02/20/10) Patient Home Medication List Home Medication List Reviewed: Yes Amitriptyline Hcl (Amitriptyline Hcl) 25 Mg Tablet, 25 MG PO DAILY PRN for MIGRAINE, (Reported) Entered as Reported by: SONAM HALL on 05/18/14 0902 Amoxicillin (Amoxicillin) 875 Mg Tablet, 875 MG PO BID Prescribed by: NAA MITCHELL on 01/04/212 Amoxicillin (Amoxicillin) 400 Mg/5 Ml Susp.recon, 500 MG PO TID Prescribed by: PETER LANGSTON on 02/06/211811 Chlorhexidine Gluconate (Chlorhexidine Gluconate) 473 Ml Mouthwash, 15 ML MM BID Prescribed by: PETER LANGSTON on 02/06/211811 Lidocaine HCl (Lidocaine HCl Viscous) 15 Ml Solution, 1-2 ML MM [id number] Prescribed by: NAA MITCHELL on 01/04/212 Lisdexamfetamine Dimesylate (Vyvanse) 50 Mg Capsule, 50 MG PO DAILY, (Reported) Entered as Reported by: ROMELIA MONCADA on 05/17/14 1548 Naproxen (Naproxen) 500 Mg Tablet.dr, 500 MG PO BID Prescribed by: NAA MITCHELL on 01/04/212 Ondansetron (Zofran Odt) 8 Mg Tab.rapdis, 8 MG PO Q6H PRN for NAUSEA/VOMITING- 1ST LINE Prescribed by: IVAN MYERS on 11/19/17 1528 Review of Systems Review of Systems Constitutional: see HPI, chills, malaise, weakness EENTM: see HPI, nose congestion, throat pain Respiratory: see HPI, cough Cardiovascular: no symptoms reported Gastrointestinal: nausea, vomiting Genitourinary: no symptoms reported Musculoskeletal: no symptoms reported Skin: no symptoms reported Psychiatric/Neurological: No Symptoms Reported Hematologic/Lymphatic: No Symptoms Reported Immunological/Allergic: no symptoms reported Past Wgokubn-Yafcfp-Etulav Hx Past Medical History Surgery/Hospitalization HX: hx of heart murmur Surgeries: No Respiratory: No 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) Heart Murmur Neurological: No Reproductive Disorders: No Sexually Transmitted Disease: No HIV/AIDS: No Genitourinary: No Gastrointestinal: No Musculoskeletal: No Endocrine: No Cancer: No Psychosocial: Yes ADD/ADHD Integumentary: No Blood Disorders: No Family Medical History Diabetes mellitus 19 MOTHER Hypertension 19 MOTHER No Family History of: Arthritis Myocardial infarction Respiratory disorder Seizure disorder Physical Exam Vital Signs Vital Signs - First Documented 11/12/21 21:29 Pulse 98 Resp 20 B/P (MAP) 149/76 (100) Pulse Ox 99 O2 Delivery Room Air Capillary Refill : Height, Weight, BMI Height: 6'1.00" Weight: 170lbs. 0oz. 77.613553lf; 23.00 BMI Method:Stated General Appearance: No Apparent Distress, WD/WN, Other (Appears to feel unwell, alert oriented very pleasant) Eyes: Bilateral Eye Normal Inspection, Bilateral Eye PERRL, Bilateral Eye EOMI HEENT: PERRL/EOMI Neck: Full Range of Motion, Normal Inspection Respiratory: Lungs Clear, Normal Breath Sounds, No Accessory Muscle Use, No Respiratory Distress Cardiovascular: Regular Rate, Rhythm, Normal Peripheral Pulses Gastrointestinal: Normal Bowel Sounds, Non Tender, Soft Extremity: Normal Capillary Refill, Normal Inspection Neurologic/Psychiatric: Alert, Oriented x3 Skin: Normal Color, Warm/Dry Progress/Results/Core Measures Suspected Sepsis SIRS Temperature: Pulse: Respiratory Rate: Blood Pressure / Mean: Results/Orders Lab Results Laboratory Tests Test 11/12/21 21:36 Range/Units Influenza Type A (RT-PCR) Not Detected Not Detecte Influenza Type B (RT-PCR) Not Detected Not Detecte SARS-CoV-2 RNA (RT-PCR) Detected H Not Detecte My Orders Orders - IVAN MYERS APRN Covid 19 Inhouse Test (11/12/21 21:26) Influenza A And B By Pcr (11/12/21 21:26) Hyoscyamine Sl Tablet (Levsin Sl Tablet) (11/12/21 21:45) Ondansetron Oral Dissolve Tab (Zofran (11/12/21 21:45) Ibuprofen Tablet (Motrin Tablet) (11/12/21 21:45) Medications Given in ED Current Medications Medications Dose Ordered Sig/Kayla Route Start Time Stop Time Status Last Admin Dose Admin Hyoscyamine Sulfate 0.125 mg ONCE ONCE PO 11/12/21 21:45 11/12/21 21:46 DC 11/12/21 21:41 0.125 MG Ibuprofen 800 mg ONCE ONCE PO 11/12/21 21:45 11/12/21 21:46 DC 11/12/21 21:41 800 MG Ondansetron HCl 8 mg ONCE ONCE PO 11/12/21 21:45 11/12/21 21:46 DC 11/12/21 21:41 8 MG Vital Signs/I&O 11/12/21 21:29 Pulse 98 Resp 20 B/P (MAP) 149/76 (100) Pulse Ox 99 O2 Delivery Room Air Capillary Refill : Departure Impression Primary Impression: COVID-19 Disposition: 01 HOME, SELF-CARE Condition: Stable Departure-Patient Inst. Decision time for Depature: 21:42 Referrals: NO,LOCAL PHYSICIAN (PCP/Family) Primary Care Physician Patient Instructions: COVID-19 (DC) Add. Discharge Instructions: 1. Tylenol and ibuprofen for pain control or fever control. This may last for 7-10 days. Return to ER for any worsening. Follow-up with your doctor next week. Work/School Note: Work Release Form Date Seen in the Emergency Department: November 12, 2021 Return to Work: Nov 20, 2021 IVAN MYERS APRN November 12, 2021 21:28
[2021-11-12 21:29] VITALS: BP 149/76
[2021-11-12] MEDS ORDERED: IBUPROFEN 800 MG (MOTRIN) TAB PO ONE (21:45)
[2021-11-12] MEDS ORDERED: ONDANSETRON 4 MG (ZOFRAN) ORAL DISSOLVE TAB PO ONE (21:45)
[2021-11-12] MEDS ORDERED: HYOSCYAMINE 0.125 MG (LEVSIN) TAB PO ONE (21:45)
== END 2021-11-12 22:39 | disposition home or self-care (01) ==
LOC: EDUNIT# 21:14 → ER 21:15
DX: U07.1 COVID-19 (principal); Z28.310 Unvaccinated for COVID-19
CPT/HCPCS: 87636; 99283

== ENCOUNTER 2023-02-02 12:13 | Emergency (ER) | payer SELFPAY ==
[~2023-02-02] VITALS: Ht 185.5 cm; Wt 86.2 kg
[~2023-02-02 12:13] MED LIST changes: +LIDO15SO3 MM; -LIDO20SO23 MM
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
[2023-02-02] MEDS ORDERED: ORPHENADRINE 60 MG/2 ML AMP (ED ONLY) IM ONE (12:45)
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
[2023-02-02] MEDS ORDERED: IBUPROFEN 800 MG TABLET PO ONE (13:30)
[2023-02-02 13:45] VITALS: BP 146/86
== END 2023-02-02 13:45 | disposition home or self-care (01) ==
LOC: EDUNIT# 12:13 → ER 12:17
DX: S06.0X0A Concussion without loss of consciousness, initial encounter (principal); S29.019A Strain of muscle and tendon of unspecified wall of thorax, initial encounter; F17.210 Nicotine dependence, cigarettes, uncomplicated; F17.290 Nicotine dependence, other tobacco product, uncomplicated; V89.2XXA Person injured in unspecified motor-vehicle accident, traffic, initial encounter; Y92.410 Unspecified street and highway as the place of occurrence of the external cause
CPT/HCPCS: 70450; 72125; 72128